=== PATIENT | male | born 1990 | race Caucasian/White ===

== ENCOUNTER 2018-01-13 14:36 | Emergency (ER) | payer MEDICAID, SELFPAY ==
[2018-01-13 14:37] VITALS: BP 139/86; PULSE 62; RESP 16; TEMP 36.2; BMI 38.1
--- NOTE | 2018-01-13 14:47 | ED.DCSUM_ITS ---
- ER Visit Summary Date of Service: 01/13/18 Chief Complaint: Tooth pain History of Present Illness: The patient is a 27 M who presents with tooth pain. Started yesterday. He has had pain in his tooth off and on but got worse yesterday. He tried ldgn-gmo-umfqdsy medications are not helping. He does not have a dentist currently but is scheduled to see a new one next week. Physical Examination: Vital signs reviewed. HEENT exam reveals tenderness at tooth #16. He has widespread dental decay. No gingival abscess. No Chirag's angina. Test Results: [] Emergency Department Course and Treatment: Patient will be given penicillin and naproxen for home. He will follow-up with his dentist Treatment Plan: [] Disposition: Discharge Impression: Odontalgia This note was generated with [employer] dictation software. It may contain incorrect words, spelling, and punctuation that were not noted in review of the chart prior to signing ED Disposition - Plan for ED Patient: Chief Complaint: Dental Referrals: Care Physician,No Primary [Primary Care Provider] -
--- NOTE | 2018-01-13 14:47 | ED.DEP ---
ED Disposition - Plan for ED Patient: Disposition: Home or Assisted Living Chief Complaint: Dental Instructions: ED Tooth Pain Prescriptions: Naproxen [Naprosyn] 500 mg PO BID PRN #20 tab Penicillin V Potassium 500 mg PO 4X/DAY #40 tab Referrals: Care Physician,No Primary [Primary Care Provider] -
[2018-01-13 14:52] VITALS: BP 139/86; PULSE 62; RESP 18
== END 2018-01-13 14:53 | disposition home or self-care (01) ==
PROVIDERS: Emergency Provider Emergency Medicine
DX: K02.9 Dental caries, unspecified (principal); J45.909 Unspecified asthma, uncomplicated
CPT/HCPCS: 99282

== ENCOUNTER → 2018-09-08 14:56 | Outpatient (CLI) | payer MEDICAID, SELFPAY ==
--- NOTE | 2018-09-08 15:01 | VDLE_ITS ---
Reason For Study: pain RIGHT LEFT CFV is compressible, spontaneous, phasic, GSV is normal. competent and demonstrates normal CFV is compressible, spontaneous, phasic, augmentation. competent, and demonstrates normal Procedure augmentation. Exam performed in department. FV is compressible, spontaneous, phasic, The exam was diagnostic. competent and demonstrates normal A preliminary report was called and/or faxed augmentation. to Breezy Reyes. POP V is compressible, spontaneous, phasic, competent and demonstrates normal augmentation. T/P Trunk is compressible. PTV is compressible. LT PerV is compressible. Interpretation Summary Deep veins of the left lower extremity are patent and compressible segmentally. There is no evidence of left lower extremity deep vein thrombosis. Valvular competence appears intact within the proximal deep venous system on the left . The left greater saphenous vein appears patent and compressible segmentally. Ordering Physician: Breezy Reyes Performed By: Trey Reyna RVT
== END ==
PROVIDERS: Referring Provider Orthopaedic Surgery; Visit Provider Orthopaedic Surgery
DX: M79.605 Pain in left leg (principal)
CPT/HCPCS: 93971

== ENCOUNTER 2018-09-17 05:55 | Day surgery (SDC) | payer MEDICAID, SELFPAY ==
[2018-09-17] VITALS (10 sets, daily range): BP systolic 97–125; BP diastolic 58–75; PULSE 65–88; RESP 16; TEMP 36.1–36.3; O2SAT 93–100; BMI 37.3
[2018-09-17] MEDS: Cefazolin 2 GM in 0.9% Normal Saline 100 ML IV (07:30)
--- NOTE | 2018-09-17 09:26 | PCM.OP.PRO ---
Procedure Report Date of Procedure: 09/17/18 Preoperative diagnosis: Left knee ACL tear Postoperative diagnosis: Left knee ACL tear Procedure: Left knee ACL reconstruction using autologous hamstring tendon Surgeon: Dr. Breezy Reyes [employer] Intern: Valarie Beaver PA-C Anesthesia: General, LMA, postoperative nerve block for pain control Medications: Ancef Indications for surgery: Patient is a 27-year-old male with a left knee injury while trampolining. he has had pain and instability. Failed conservative measures. MRI consistent with intra-articular pathology, ACL tear. he did wish to have surgical intervention. Findings: Patient had a complete ACL tear. No meniscus tear identified. Underwent ACL reconstruction using quadrupled semitendinosus autograft using femoral tight rope and tibial tight rope, Arthrex Physician special event assistant was utilized throughout the entire procedure. She help with patient positioning. She help with graft harvesting. She helped with graft preparation. This was done simultaneous to the surgeon proceeding with further graft harvesting and intra-articular knee surgery. Physician special event assistant was crucial in helping with placement of tunnels. Graft fixation. Also helping with graft tensioning. Also wound closure bandage application. Without surgical physician special event assistant surgical time would have been increased and surgical outcome could have been less optimal. Surgical procedure: Patient was taken to the operating room and transferred to the OR table. Anesthesia was given. Ancef was given IV preoperatively. Well-padded tourniquet applied to the left upper thigh that was not inflated. Right lower extremity had MARCELINO hose and SCD on throughout. Right lower extremity was padded over the end of the bed which was flexed down. Left thigh placed in the padded arthroscopic leg seals. Left knee exam and found to be unstable to Evelyne testing. Left knee unstable to pivot shift testing. Left knee was prepped padded draped in the usual orthopedic sterile fashion for the procedure. Oblique incision was made over the upper medial tibia. Careful dissection through skin, sub-cutaneous tissue and onto the hamstring attachment site. I used the Bovie to dissect from the anterior crest of the tibia underneath the hamstring attachment harvesting semi-tendinosis tendon. Tendon was whipstitched at the end.. Tendon harvester used to obtain the full length of each of the tendons. Physician special event assistant took the tendons to the back table, prepared the graft under standard technique. Quadrupled hamstrings measured 9 mm. 70 mm in length ,plenty of length. This was appropriately tensioned. Antibiotic soaked sponge was placed over it under tension. Physician at the same time proceeded with arthroscopic knee surgery. Lateral joint line portal taken through skin with a knife. Dull trocar took mean of the joint. Suprapatellar pouch was normal. Medial and lateral gutters normal. Intercondylar notch showed a complete ACL tear. Pictures taken. Medial compartment showed no meniscus tear. Lateral compartment showed no meniscus tear. Mild chondrosis diffusely Notch plasty performed with a shaver, bur. Medial cannula was established. At this point tibial guide set at 105? utilized the femoral side. Flip cutter appropriately utilized for a 9 mm graft. Bony fragments removed. Approximately 3 mm posterior wall identified. Tagging suture placed through the cannula and portal.. We then used the guide through the tibial tunnel with a 40 mm tunnel length. We used the flip cutter there are 9 mm as well. Bony fragments removed. Tagging suture placed through that portal. Graft was now brought in after knee had been thoroughly cleaned. We used the femoral tight rope brought up through the bone. We then tensioned it. Approximately 15-20 mm of the tendon was within the tibial tunnel. We then used the other passing suture to bring the graft through the tibial tunnel. We placed a tibial tight rope and using the 4 strands of suture through the graft tightness down nicely. Knee was fully extended and fully flexed as allowed by the table. Good stability to Evelyne testing and drawer testing. Scope was placed back in the knee. Graft was noted to be in good position. Graft had nice resting tension. Tunnel tensioning of the tibial and femoral sutures done. 2 of the tibial sutures tied over the button. The suture is cut off even with the button. Final set of pictures taken. Knee drained of excess fluid. Arthroscopy portals closed with a simple suture. [place]aelder site closed with deep 0 Vicryl, inverted 2-0 Vicryl, Steri-Strips. Steri-Strips placed over the puncture sites. Sterile bandage appied. Patient taken to recovery room in satisfactory condition. Patient to get a postoperative nerve block there. Patient will be weightbearing as tolerated. Knee brace if needed This note was generated with [employer] software. It may contain incorrect words, spelling, and punctuation that were not noted in checking the note before signing.
--- NOTE | 2018-09-17 09:30 | PRO.PCM_ITS ---
Procedure Report Date of Procedure: 09/17/18 Preoperative diagnosis: Left knee ACL tear Postoperative diagnosis: Left knee ACL tear Procedure: Left knee ACL reconstruction using autologous hamstring tendon Surgeon: Dr. Breezy Reyes Bar Welder: Valarie Beaver PA-C Anesthesia: General, LMA, postoperative nerve block for pain control Medications: Ancef Indications for surgery: Patient is a 27-year-old male with a left knee injury while trampolining. he has had pain and instability. Failed conservative measures. MRI consistent with intra-articular pathology, ACL tear. he did wish to have surgical intervention. Findings: Patient had a complete ACL tear. No meniscus tear identified. Underwent ACL reconstruction using quadrupled semitendinosus autograft using femoral tight rope and tibial tight rope, Arthrex Physician assistant analyst was utilized throughout the entire procedure. She help with patient positioning. She help with graft harvesting. She helped with graft preparation. This was done simultaneous to the surgeon proceeding with further graft harvesting and intra-articular knee surgery. Physician assistant analyst was cr ucial in helping with placement of tunnels. Graft fixation. Also helping with graft tensioning. Also wound closure bandage application. Without surgical physician assistant analyst surgical time would have been increased and surgical outcome could have been less optimal. Surgical procedure: Patient was taken to the operating room and transferred to the OR table. Anesthesia was given. Ancef was given IV preoperatively. Well- padded tourniquet applied to the left upper thigh that was not inflated. Right lower extremity had MARCELINO hose and SCD on throughout. Right lower extremity was padded over the end of the bed which was flexed down. Left thigh placed in the padded arthroscopic leg seals. Left knee exam and found to be unstable to Evelyne testing. Left knee unstable to pivot shift testing. Left knee was prepped padded draped in the usual orthopedic sterile fashion for the procedure. Oblique incision was made over the upper medial tibia. Careful dissection through skin, sub-cutaneous tissue and onto the hamstring attachment site. I used the Bovie to dissect from the anterior crest of the tibia underneath the hamstring attachment harvesting semi-tendinosis tendon. Tendon was whipstitched at the end.. Tendon harvester used to obtain the full length of each of the tendons. Physician assistant analyst took the tendons to the back table, prepared the graft under standard technique. Quadrupled hamstrings measured 9 mm. 70 mm in length ,plenty of length. This was appropriately tensioned. Antibiotic soaked sponge was placed over it under tension. Physician at the same time proceeded with arthroscopic knee surgery. Lateral joint line portal taken through skin with a knife. Dull trocar took mean of the joint. Suprapatellar pouch was normal. Medial and lateral gutters normal. Intercondylar notch showed a complete ACL tear. Pictures taken. Medial compartment showed no meniscus tear. Lateral compartment showed no meniscus tear. Mild chondrosis diffusely Notch plasty performed with a shaver, bur. Medial cannula was established. At this point tibial guide set at 105? utilized the femoral side. Flip cutter appropriately utilized for a 9 mm graft. Bony fragments removed. Approximately 3 mm posterior wall identified. Tagging suture placed through the cannula and portal.. We then used the guide through the tibial tunnel with a 40 mm tunnel length. We used the flip cutter there are 9 mm as well. Bony fragments removed. Tagging suture placed through that portal. Graft was now brought in after knee had been thoroughly cleaned. We used the femoral tight rope brought up through the bone. We then tensioned it. Approximately 15-20 mm of the tendon was within the tibial tunnel. We then used the other passing suture to bring the graft through the tibial tunnel. We placed a tibial tight rope and using the 4 strands of suture through the graft tightness down nicely. Knee was fully extended and fully flexed as allowed by the table. Good stability to Evelyne testing and drawer testing. Scope was placed back in the knee. Graft was noted to be in good position. Graft had nice resting tension. Tunnel tensioning of the tibial and femoral sutures done. 2 of the tibial sutures tied over the button. The suture is cut off even with the button. Final set of pictures taken. Knee drained of excess fluid. Arthroscopy portals closed with a simple suture. Eola site closed with deep 0 Vicryl, inverted 2-0 Vicryl, Steri-Strips. Steri-Strips placed over the puncture sites. Sterile bandage appied. Patient taken to recovery room in satisfactory condition. Patient to get a postoperative nerve block there. Patient will be weightbearing as tolerated. Knee brace if needed This note was generated with [employer] software. It may contain incorrect words, spelling, and punctuation that were not noted in checking the note before signing.
[2018-09-17] MEDS: HYDROcodone Bitartrate/Apap 5/325 Tablet PO (11:52)
== END 2018-09-17 12:39 | disposition home or self-care (01) ==
LOC: SDC 05:55 → AC 05:57
PROVIDERS: Referring Provider Orthopaedic Surgery; Visit Provider Orthopaedic Surgery
PROC: (CPT 29888; principal; 2018-09-17 07:10)
DX: S83.512A Sprain of anterior cruciate ligament of left knee, initial encounter (principal); X58.XXXA Exposure to other specified factors, initial encounter; Y93.44 Activity, trampolining; Y92.9 Unspecified place or not applicable; J45.909 Unspecified asthma, uncomplicated
CPT/HCPCS: 01400; 29888; 64450; J7120; J2405

== ENCOUNTER 2022-05-02 21:46 | Emergency (ER) | payer MEDICAID, SELFPAY ==
[2022-05-02 21:47] VITALS: BP 121/92; PULSE 117; RESP 20; TEMP 36.8; O2SAT 99; BMI 37.2
--- NOTE | 2022-05-02 21:56 | EX.ED.DYSGE1 ---
HPI History of Present Illness Chief Complaint: General Illness Narrative Narrative: 31-year-old male presenting with body aches, chills, shortness of breath. He has a subjective fever but has not checked his temperature. He has been doing his nebulizers and states this does not seem to be helping. He states that he cannot feel his body because of the chills. He does have a cough is nonproductive. No nausea or vomiting. He does not feel like he is wheezing. Patient states that he was driving the mother of his future child around to her appointments and she developed fever, chills, body aches starting on Thursday. He states his children have been with his parents since Thursday. His children are not ill. Patient states he has not taken Tylenol or ibuprofen. He states he was considering it tonight before coming but decided he would come be seen. Patient also states he was going to use Vicks VapoRub to help his symptoms but he did not. [facility] Medical History Asthma Home Medications albuterol sulfate 2.5 mg/3 mL (0.083 %) solution for nebulization 2.5 mg inhalation Q4H PRN PRN Sob &/Or Wheezing 01/06/16 [History Last Taken 03/29/17] cyclobenzaprine 10 mg tablet 10 mg PO TID PRN Muscle Spasm ##20 02/28/16 [Rx Last Taken Unknown] albuterol sulfate 90 mcg/actuation aerosol inhaler (Ventolin HFA) 1 - 2 puff inhalation Q4H PRN PRN Wheezing ##1 03/29/17 [Rx Last Taken 09/17/18 05:45 1 - 2 PUFF] naproxen 500 mg tablet 500 mg PO BID PRN #20 tabs 01/13/18 [Rx Last Taken Unknown] prednisone 10 mg tablet 40 mg PO PRN PRN Pain 09/13/18 [History Last Taken Unknown] Allergy/AdvReac Type Severity Reaction Status Date / Time No Known Allergies Allergy Verified 09/13/18 14:45 Social History Smoking Status: Never smoker ROS ROS ED Constitutional Constitutional ED: Reports chills, fever(s) and subjective Eyes Eyes: Denies change in vision ENT ENT ED: Denies rhinorrhea or sore throat Cardiovascular Cardiovascular: Denies chest pain or palpitations Respiratory/Chest Respiratory/Chest: Reports cough and dyspnea Gastrointestinal Gastrointestinal: Denies abdominal pain or constipation Genitourinary Genitourinary ED: Denies dysuria or hematuria Musculoskeletal Musculoskeletal: Reports myalgias Integumentary Denies abscess or Abrasions Neurologic Neurologic: Reports headache(s); Denies paresthesias Psychiatric Psychiatric: Denies anxiety or depression EXAM Physical Exam Const Vital Signs: 05/02/22 21:47 05/02/22 21:50 Temperature 98.2 F Temperature Source Temporal Pulse Rate 117 H Respiratory Rate 20 H Respiratory Effort Normal Blood Pressure 121/92 H Blood Pressure Mean 101 Pulse Ox 99 Oxygen Delivery Method Room Air Positive well nourished General Appearance ED: NAD HEENT Reports moist mucous membranes Eyes PERRL and EOMs intact bilaterally Neck no lymphadenopathy, supple and no JVD Chest Wall inspection of chest normal and palpation of chest normal Resp normal respiratory effort and clear to auscultation bilaterally Auscultation: Negative for rales, rhonchi or wheezes Cardio regular rhythm Rate: tachycardic GI normal to inspection, nondistended, normoactive bowel sounds Neuro oriented x3 and CN's II-XII intact bilaterally Sensorium / Orientation: alert Motor Exam: strength 5/5 throughout Psych mental status grossly normal Skin no rashes or lesions noted and no wounds MDM MDM MDM Narrative Medical decision making narrative: Patient presenting with viral symptoms. His initial temperature was registered as 98.2 temporally but when I checked this orally it is 101.6. I believe this is why he is a little tachycardic. He does not have chest pain. Although he states he is short of breath he has nonlabored breathing and speaking in full sentences. His lungs are clear to auscultation bilaterally. Patient was given a gram of Tylenol. I will test him for COVID, influenza, RSV. I do not believe he needs breathing treatments currently. Testing came back negative for COVID, influenza, RSV. Patient feeling improved with Tylenol. I do not believe any checks x-ray. Given that the mother of his child is having symptoms as well this is most likely viral. Patient counseled to alternate Tylenol and ibuprofen. He is encouraged to drink plenty of fluids. Return precautions discussed. Impression: 1. Viral syndrome Lab Data Attestation: I reviewed the patient's lab results. Discharge Plan Triage Chief Complaint: General Illness ED Provider: Scot Richmond Dx/Rx/DC Orders Instructions: ED Viral Syndrome (Adult) Prescriptions: No Action albuterol sulfate 2.5 MG/3 ML Vial.Neb. 2.5 mg inhalation Q4H PRN PRN (Reason: Sob &/Or Wheezing) cyclobenzaprine 10 MG tablet 10 mg PO TID PRN (Reason: Muscle Spasm) Qty: 20 0RF albuterol sulfate [Ventolin HFA] 1 INHALER inhaler 1 - 2 puff inhalation Q4H PRN PRN (Reason: Wheezing) Qty: 1 0RF naproxen 500 MG tablet 500 mg PO BID PRN Qty: 20 0RF prednisone 10 MG tablet 40 mg PO PRN PRN (Reason: Pain) Stand Alone Forms: ED Work / School Excuse Primary Care Provider: Care Physician,No Primary Referrals: Stella Houston MD [Med Staff - Compliance Officer] - 3-5 Days Care Physician,No Primary [Primary Care Provider] - Disposition Disposition: Home, Self Care
[2022-05-02] MEDS: Acetaminophen 500 MG Tablet 1000 MG PO (21:58)
== END 2022-05-02 22:49 | disposition home or self-care (01) ==
PROVIDERS: Emergency Provider Student in an Organized Health Care Education/Training Program; Visit Provider Student in an Organized Health Care Education/Training Program
DX: B34.9 Viral infection, unspecified (principal); J45.909 Unspecified asthma, uncomplicated; R50.9 Fever, unspecified; R00.0 Tachycardia, unspecified; R05.9 Cough, unspecified; Z20.822 Contact with and (suspected) exposure to COVID-19; Z79.899 Other long term (current) drug therapy
CPT/HCPCS: 87428; 87807; 99283

== ENCOUNTER 2023-01-15 18:55 | Emergency (ER) | payer MEDICAID, SELFPAY ==
[2023-01-15 18:55] VITALS: BP 133/90; PULSE 66; RESP 22; TEMP 36.3; O2SAT 98; BMI 36.7
--- NOTE | 2023-01-15 19:10 | ED.VIS.BACK ---
HPI History of Present Illness Chief Complaint: Back Detail of Chief Complaint: Acute on chronic low back pain Informant: patient Onset/Context/Timing Onset: Yesterday Context: Sudden Onset Injury: fall Timing: Continuous and Waxes and wanes Quality: Dull and Aching Location: Lumbar Current Severity: Mild Maximum Severity: Severe Worsened by: improves with Movement, Bending and Lifting Relieved by: Nothing Associated Symptoms Associated Symptoms: Radiation to Left Leg (Anterior right leg above the patella for 20 minutes after fall) and - (No saddle paresthesia or anesthesia. No foot drop with walking. No buckling of knees going up or down steps.); Negative for Numbness, Tingling, Radiation to Right Leg, Fever, Abdominal Pain, Dysuria, Unable to Ambulate, Urinary Retention, Urinary Incontinence, Constipation or Fecal Incontinence Narrative Narrative: Patient is a 32-year-old male with chronic back pain. He is present no medicine. He is taken nothing for the pain. He states he was at work yesterday. 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 He developed severe pain went down to the ground. He denies bowel bladder dysfunction. No saddle paresthesia anesthesia. Denies radicular pain. He denies foot drop. He denies buckling of his knees going up or down steps. He denies fever, chills night sweats. Denies recent dental or surgical procedures. He has no history of IV drug use. Prior similar symptoms: Yes Recent Illness/Hospitalization: No [facility] Medical History Asthma Home Medications albuterol sulfate 2.5 mg/3 mL (0.083 %) solution for nebulization 2.5 mg inhalation Q4H PRN PRN Sob &/Or Wheezing 01/06/16 [History Last Taken 03/29/17] cyclobenzaprine 10 mg tablet 10 mg PO TID PRN Muscle Spasm ##20 02/28/16 [Rx Last Taken Unknown] albuterol sulfate 90 mcg/actuation aerosol inhaler (Ventolin HFA) 1 - 2 puff inhalation Q4H PRN PRN Wheezing ##1 03/29/17 [Rx Last Taken 09/17/18 05:45 1 - 2 PUFF] naproxen 500 mg tablet 500 mg PO BID PRN #20 tabs 01/13/18 [Rx Last Taken Unknown] prednisone 10 mg tablet 40 mg PO PRN PRN Pain 09/13/18 [History Last Taken Unknown] hydrocodone-acetaminophen 5-325mg 5mg-325mg 1 tab PO Q6H PRN PRN Pain 3 days #10 TABLETS 01/15/23 [Rx Last Taken Unknown] naproxen 500 mg tablet 500 mg PO BID #14 tabs 01/15/23 [Rx Last Taken Unknown] Allergy/AdvReac Type Severity Reaction Status Date / Time No Known Allergies Allergy Verified 01/15/23 18:57 Social History (Updated 01/15/23 @ 19:[address] Raj Hunt MD) household members: significant other Smoking Status: Never smoker substance use type: does not use ROS ROS ED Constitutional Constitutional ED: Denies chills, fever(s), subjective or sweats Cardiovascular Cardiovascular: Denies chest pain, palpitations or racing heartbeat Respiratory/Chest Respiratory/Chest: Denies dyspnea Gastrointestinal Gastrointestinal: Denies abdominal pain, constipation, diarrhea, nausea or vomiting Genitourinary Genitourinary ED: Denies dysuria, hematuria or urinary frequency Musculoskeletal Musculoskeletal: Reports back pain; Denies arthralgias, myalgias or neck pain Integumentary Denies rash Neurologic Neurologic: Denies paresthesias or weakness Hematologic/Lymphatic Hematologic/Lymphatic: Denies easy bleeding or easy bruising EXAM Physical Exam Const Vital Signs: 01/15/23 18:55 Temperature 97.4 F L Temperature Source Temporal Pulse Rate 66 Respiratory Rate 22 H Blood Pressure 133/90 H Blood Pressure Mean 104 Pulse Ox 98 Oxygen Delivery Method Room Air Positive well nourished, well developed and obese General Appearance ED: well developed and NAD; Negative for pallor Nutritional Appearance: obese HEENT Reports moist mucous membranes HEENT Narrative: Head is atraumatic normocephalic. Ears normal. Nares patent. Eyes PERRL and EOMs intact bilaterally General Eye ED: Yes other Other Details: Patient does wear glasses. ; Negative for pale conjunctiva or scleral icterus Neck no lymphadenopathy, supple and no JVD Resp normal respiratory effort and clear to auscultation bilaterally Cardio regular rate, regular rhythm, S1 normal heart sound, S2 normal heart sound and no murmurs GI normal to inspection, nondistended, normoactive bowel sounds, soft to palpation, non-tender and non-distended Back/Spine normal to inspection; Negative for no thoracic nor lumbar tenderness Back/Spine Narrative: Pain outpatient paralumbar region. Having him stand on his right or left foot does not cause pain. Having him twist to the right or left causes pain and greater to the right. Extension causes more pain than flexion. Straight leg test is negative. Crossover test is negative. Gait observed with no foot drop. Able to walk on heels and toes. Able to perform 1 legged squat right and left. Patella and ankle reflexes are 1+ and symmetric. EHL is intact. Sensation over L3, L4, L5 and S1 is intact and symmetric. DP and PT pulse are palpable. There are no skin lesions noted. Extremity normal to inspection and no clubbing, cyanosis or edema Neuro oriented x3 and no sensory deficits noted Sensorium / Orientation: alert Deep Tendon Reflexes: Rt Patellar (L4): 1+, Lt Patellar (L4): 1+, Rt Ankle (S1): 1+ and Lt Ankle (S1): 1+ Deep Tendon Reflexes Back: Rt Patellar (L4): 1+, Lt Patellar (L4): 1+, Rt Ankle (S1): 1+ and Lt Ankle (S1): 1+ Plantar Reflex: Downgoing: bilateral Psych mental status grossly normal Skin no rashes or lesions noted and no wounds General Skin Exam: Negative for jaundice or pallor MDM MDM MDM Narrative Medical decision making narrative: Patient's history and physical is consistent with muscular low back pain. Patient was treated with oral analgesics. Since there is no history of trauma imaging is not indicated. Since there is no neurologic deficit advanced imaging is not indicated i.e. MRI. Patient was instructed to follow-up with his provider listed on his insurance card issued by [employer]. Discharge Plan Triage Chief Complaint: Back ED Provider: Raj Hunt Dx/Rx/DC Orders Clinical Impression: Acute exacerbation of chronic low back pain Instructions: ED Back Pain (Acute or Chronic) Prescriptions: New hydrocodone-acetaminophen [hydrocodone-acetaminophen] 5-325 mg tablet 1 tab PO Q6H PRN PRN (Reason: Pain) 3 Days Qty: 10 0RF naproxen 500 mg tablet 500 mg PO BID Qty: 14 0RF No Action albuterol sulfate 2.5 MG/3 ML solution for nebulization 2.5 mg inhalation Q4H PRN PRN (Reason: Sob &/Or Wheezing) cyclobenzaprine 10 MG tablet 10 mg PO TID PRN (Reason: Muscle Spasm) Qty: 20 0RF albuterol sulfate [Ventolin HFA] 1 INHALER inhaler 1 - 2 puff inhalation Q4H PRN PRN (Reason: Wheezing) Qty: 1 0RF naproxen 500 MG tablet 500 mg PO BID PRN Qty: 20 0RF prednisone 10 MG tablet 40 mg PO PRN PRN (Reason: Pain) Primary Care Provider: Care Physician,No Primary Referrals: Care Physician,No Primary [Primary Care Provider] - Disposition Disposition: Home, Self Care
[2023-01-15] MEDS: Naproxen 250 MG Tablet 500 MG PO (19:26)
[2023-01-15] MEDS: HYDROcodone Bitartrate/Apap 5/325 Tablet PO (19:26)
== END 2023-01-15 19:29 | disposition home or self-care (01) ==
PROVIDERS: Emergency Provider Emergency Medicine; Visit Provider Emergency Medicine
DX: M54.50 Low back pain, unspecified (principal); G89.29 Other chronic pain; E66.9 Obesity, unspecified; Z68.36 Body mass index [BMI] 36.0-36.9, adult
CPT/HCPCS: 99283

== ENCOUNTER 2023-04-29 08:39 | Emergency (ER) | payer OTHER, SELFPAY ==
[2023-04-29 08:39] VITALS: BP 139/66; PULSE 77; RESP 14; TEMP 36.4; O2SAT 98
--- NOTE | 2023-04-29 09:11 | ED.VIS.BACK ---
HPI History of Present Illness Chief Complaint: Back Informant: patient Narrative Narrative: Recurrent lower back pain after getting out of car this morning. History of chronic back pain with degenerative disc issues. He states he has had this for years. He is follow-up with spine surgeon years ago through [facility] states either weight loss or will require surgery. He is scared of surgery. Intermittent flares. States this mornings putting air in the tires, he felt mild symptoms, when he dropped off his kids at his mother's house getting out of the car pain worsened. No radicular pain. No loss of bowel or bladder control. Denies any IV drug use. Denies fevers. Pain worse with weightbearing and walking. Has not taken any medication today. Denies any allergies. States 5 or 6 years ago had injections he thinks one of them are steroids that did help within hours. He was last seen here 3 months ago for flare, was on NSAIDs and short course of hydrocodone. He states it took a couple days to get better. He states him and studies has been performed in the past as an outpatient. Prior similar symptoms: Yes PFSH [facility] Medical History Asthma Home Medications albuterol sulfate 2.5 mg/3 mL (0.083 %) solution for nebulization 2.5 mg inhalation Q4H PRN PRN Sob &/Or Wheezing 01/06/16 [History Last Taken 03/29/17] cyclobenzaprine 10 mg tablet 10 mg PO TID PRN Muscle Spasm ##20 02/28/16 [Rx Last Taken Unknown] albuterol sulfate 90 mcg/actuation aerosol inhaler (Ventolin HFA) 1 - 2 puff inhalation Q4H PRN PRN Wheezing ##1 03/29/17 [Rx Last Taken 09/17/18 05:45 1 - 2 PUFF] naproxen 500 mg tablet 500 mg PO BID PRN #20 tabs 01/13/18 [Rx Last Taken Unknown] prednisone 10 mg tablet 40 mg PO PRN PRN Pain 09/13/18 [History Last Taken Unknown] hydrocodone-acetaminophen 5-325mg 5mg-325mg 1 tab PO Q6H PRN PRN Pain 3 days #10 TABLETS 01/15/23 [Rx Last Taken Unknown] naproxen 500 mg tablet 500 mg PO BID #14 tabs 01/15/23 [Rx Last Taken Unknown] hydrocodone-acetaminophen 5-325mg 5mg-325mg 1 tab PO Q6H PRN PRN Pain 3 days #10 TABLETS 04/29/23 [Rx Last Taken Unknown] naproxen 500 mg tablet 500 mg PO BID PRN pain #20 tabs 04/29/23 [Rx Last Taken Unknown] Allergy/AdvReac Type Severity Reaction Status Date / Time No Known Allergies Allergy Verified 04/29/23 08:41 Social History (Updated 01/15/23 @ 19:[address] Raj Hunt MD) household members: significant other Smoking Status: Never smoker substance use type: does not use ROS ROS ED Constitutional Constitutional ED: Denies chills, fever(s) or sweats Eyes Eyes: Denies change in vision ENT ENT ED: Denies dysphagia or sore throat Cardiovascular Cardiovascular: Denies chest pain, leg edema, palpitations or racing heartbeat Respiratory/Chest Respiratory/Chest: Denies cough, dyspnea or dyspnea on exertion Gastrointestinal Gastrointestinal: Denies abdominal pain, diarrhea, nausea or vomiting Genitourinary Genitourinary ED: Denies dysuria, hematuria or urinary frequency Musculoskeletal Musculoskeletal: Reports back pain; Denies extremity pain or neck pain Integumentary Denies rash or wounds Neurologic Neurologic: Denies headache(s), paresthesias or weakness EXAM Physical Exam Const Vital Signs: 04/29/23 08:39 Temperature 97.5 F L Temperature Source Temporal Pulse Rate 77 Respiratory Rate 14 Blood Pressure 139/66 H Blood Pressure Mean 90 Pulse Ox 98 Oxygen Delivery Method Room Air Positive well nourished and well developed Constitutional Narrative: Patient able to walk with a cane bedside. General Appearance ED: well developed HEENT Reports moist mucous membranes normocephalic and atraumatic Eyes PERRL, EOMs intact bilaterally and conjunctivae normal General Eye ED: Yes normal appearance of both eyes Neck no lymphadenopathy and supple General: Negative for tenderness Chest Wall Chest: Negative for tenderness Resp normal respiratory effort and normal air movement Effort and Inspection: symmetric chest movement; Negative for respiratory distress Cardio regular rate, regular rhythm and no murmurs Peripheral Pulses: pulses 2+ throughout GI normal to inspection, nondistended, normoactive bowel sounds and non-tender Palpation: Negative for guarding or rebound tenderness present Back/Spine no CVA tenderness Back/Spine Narrative: Paralumbar tenderness left greater than right, straight leg test was negative. 1+ patellar reflex bilaterally. Pulses are intact distally. Extremity normal to inspection General Extremety ED: Negative for edema or tenderness General Extremity: Negative for edema Neuro oriented x3 and no sensory deficits noted Sensorium / Orientation: awake and alert Skin no rashes or lesions noted and no wounds MDM MDM MDM Narrative Medical decision making narrative: Interventions / MDM: Differential diagnosis: Lumbar strain, degenerative disc disease Diagnosis considered but do not suspect: No cauda equina symptoms, denies IV drug use history or fevers for concerns for discitis. My EKG interpretation: N/A Imaging independently reviewed and interpreted by myself: N/A External documents reviewed: N/A Test considered but not ordered:N/A ED course: Patient nontoxic, no cauda equina symptoms. Denies any radicular symptoms. Reported improving symptoms with steroid injections few years ago. Denies history of kidney injury or gastric ulcers. IM Toradol and Kenalog ordered. [facility] report notes that the last prescription was 3 months ago hydrocodone. Prescription for NSAIDs and short course of hydrocodone, he is referred to local spine doctors for second opinion per his request. Work note given. Outpatient follow-up. All questions were answered. Re-evaluation: stable Disposition discussed with patient/family/significant other: Patient Case discussed with consulting clinician: N/A This note was generated with [employer] dictation software. It may contain incorrect words, spelling, and punctuation that were not noted in checking the note before signing. Discharge Plan Triage Chief Complaint: Back ED Provider: Cleveland Baxter Dx/Rx/DC Orders Clinical Impression: Acute exacerbation of chronic low back pain, Degenerative disk disease Instructions: ED Back Pain (Acute or Chronic) Prescriptions: New hydrocodone-acetaminophen [hydrocodone-acetaminophen] 5-325 mg tablet 1 tab PO Q6H PRN PRN (Reason: Pain) 3 Days Qty: 10 0RF naproxen 500 mg tablet 500 mg PO BID PRN (Reason: pain) Qty: 20 0RF No Action albuterol sulfate 2.5 MG/3 ML solution for nebulization 2.5 mg inhalation Q4H PRN PRN (Reason: Sob &/Or Wheezing) cyclobenzaprine 10 MG tablet 10 mg PO TID PRN (Reason: Muscle Spasm) Qty: 20 0RF albuterol sulfate [Ventolin HFA] 1 INHALER inhaler 1 - 2 puff inhalation Q4H PRN PRN (Reason: Wheezing) Qty: 1 0RF naproxen 500 MG tablet 500 mg PO BID PRN Qty: 20 0RF prednisone 10 MG tablet 40 mg PO PRN PRN (Reason: Pain) hydrocodone-acetaminophen [hydrocodone-acetaminophen] 5-325 mg tablet 1 tab PO Q6H PRN PRN (Reason: Pain) 3 Days Qty: 10 0RF naproxen 500 mg tablet 500 mg PO BID Qty: 14 0RF Stand Alone Forms: ED Work / School Excuse Primary Care Provider: Care Physician,No Primary Referrals: Tha Roa DO [Med Staff - Active Staff] - 1 Week Care Physician,No Primary [Primary Care Provider] - Activity Restrictions/Additional Instructions: Status post Toradol and Kenalog injections. Take medications as prescribed. Follow-up with Dr. Roa. As an outpatient for reevaluation. Disposition Disposition: Home, Self Care Discharge Date/Time: 04/29/23 09:43
[2023-04-29] MEDS: Ketorolac 30 MG/ML Syringe IM (09:12)
[2023-04-29] MEDS: Triamcinolone Acetonide 40 MG/ML Vial 80 MG IM (09:13)
== END 2023-04-29 09:43 | disposition home or self-care (01) ==
PROVIDERS: Emergency Provider Emergency Medicine; Visit Provider Emergency Medicine
DX: M54.50 Low back pain, unspecified (principal); G89.29 Other chronic pain
CPT/HCPCS: 96372; 99282

== ENCOUNTER 2023-06-22 11:38 | Emergency (ER) | payer OTHER, SELFPAY ==
[2023-06-22 11:39] VITALS: BP 108/77; PULSE 60; RESP 18; TEMP 36.9; O2SAT 96; BMI 37.1
--- NOTE | 2023-06-22 11:54 | EDS_ITS ---
<Statement entered by Lou Morris MD - 06/22/23 16:30> I have personally performed a face to face assessment of the patient and have reviewed the MATTEO Note. Patient presents secondary to URI symptoms with abdominal pain and back pain. He said pain for the last several days. Decreased p.o. intake due to poor appetite. No recent fall or injury. He has chronic back pain that is recently worsened with this illness. Patient sitting upright in bed no acute distress. Nontoxic-appearing. Head and neck examination unremarkable. Heart regular rate and rhythm. Lung sounds are clear. Abdomen is soft and nontender. Neuro exam reveals no focal deficits. Lab work is unremarkable. Swab for COVID, influenza, RSV is negative. Patient is given Toradol and Norflex for pain. I do feel we can continue symptomatic treatment at home and further imaging studies are not needed. I do feel his symptoms are viral in nature and he does not need antibiotics at this time. HPI History of Present Illness Chief Complaint: General Illness Narrative Narrative: 32-year-old male states he had 1 week of increased back pain. He has chronic low back issues but he feels achy all over and in his pelvis. Over the last couple days has had bilateral lower abdominal pain and 1-2 episodes of loose stools per day with last yesterday. No black or bloody stools. He has nausea and vomited last night after trying to eat soup and today has no appetite. He complains of headache and feeling like his eyes and throat are swollen. He has had a slight cough and his asthma is flaring up. He does not have an inhaler. He states his daughter was sick and seen in urgent care this morning and tested for COVID/flu but it is pending. He was sent here for evaluation of his abdominal pain. [facility] Medical History (Updated 06/22/23 @ 13:36 by JEFFERSON Chamberlain) Asthma DDD (degenerative disc disease) Home Medications albuterol sulfate 2.5 mg/3 mL (0.083 %) solution for nebulization 2.5 mg inhalation Q4H PRN PRN Sob &/Or Wheezing 01/06/16 [History Last Taken 03/29/17] albuterol sulfate 90 mcg/actuation aerosol inhaler (Ventolin HFA) 1 - 2 puff inhalation Q4H PRN PRN Wheezing ##1 03/29/17 [Rx Last Taken 09/17/18 05:45 1 - 2 PUFF] ondansetron 4 mg disintegrating tablet 4 mg PO Q8H PRN PRN Nausea #10 tabs 06/22/23 [Rx Last Taken Unknown] Allergy/AdvReac Type Severity Reaction Status Date / Time No Known Allergies Allergy Verified 06/22/23 11:39 Surgical History (Updated 06/22/23 @ 12:04 by Ting Lux) S/P ACL repair Social History (Updated 01/15/23 @ 19:[address] Raj Hunt MD) household members: significant other Smoking Status: Never smoker substance use type: does not use ROS ROS ED ROS Narrative Constitutional: Negative for fever, chills. CVS: Negative for palpitations, chest pain, syncope. Respiratory: Positive for shortness of breath, cough. GI: Positive for abdominal pain, nausea, vomiting, diarrhea. Negative for constipation, melena, hematochezia. : Negative for dysuria, hematuria or frequency. Neuro: Positive for headache. EXAM Physical Exam Narrative Exam Narrative: CONST: Patient sitting in no acute distress. EYES: Normal inspection. ENT: Normal inspection, moist mucous membranes. NECK: Normal inspection. No meningismus. RESP: No respiratory distress, CTAB. CVS: Regular rate and rhythm, no murmur, no gallop. ABD: Soft with bilateral lower quadrant tenderness left greater than right, no guarding or rebound, nondistended. Back: Normal inspection, diffusely tender to palpation over entire lumbar back and spine with light touch. No step-offs or crepitus. SKIN: Color normal, no rash, warm, dry, intact. EXTREMITIES: Normal appearance, no pedal edema. 2+ radial and DP pulses. NEURO: Oriented x4. PSYCH: Normal affect. Const Vital Signs: 06/22/23 11:39 06/22/23 12:02 Temperature 98.5 F Temperature Source Temporal Pulse Rate 60 Respiratory Rate 18 Respiratory Effort Normal Non-Labored Respiratory Pattern Normal Blood Pressure 108/77 Blood Pressure Mean 87 Pulse Ox 96 Oxygen Delivery Method Room Air MDM MDM MDM Narrative Medical decision making narrative: Patient has constellation of URI symptoms, N/V/D, and back pain. He appears well and nontoxic. Afebrile with normal vital signs. On exam heart is regular rate with no murmurs. Lungs clear. Abdomen soft with bilateral lower quadrant tenderness but no peritoneal signs. CBC and CMP unremarkable except for total bilirubin of 1.4. He has no RUQ tenderness and normal LFTs so I do not think he has an acute gallbladder process. Imaging isn't indicated based on serial benign abdominal exams and other constellation of other symptoms suggesting more of a viral syndrome. His myalgias/back pain was treated with Toradol and Norflex. I prescribed Zofran and refilled has albuterol inhaler to use as needed, recommended [id number] analgesia, and discussed return precautions and he was discharged in stable condition. Lab Data Attestation: I reviewed the patient's lab results. Labs: Laboratory Results - last 24 hr 06/22/23 12:10 WBC 8.7 RBC 5.31 Hgb 15.1 Hct 45.3 MCV 85.3 MCH 28.4 MCHC 33.3 RDW Std Deviation 39.1 RDW Coeff of Noah 12.5 Plt Count 190 MPV 10.0 Immature Gran % (Auto) 0.500 Neut % (Auto) 62.7 Lymph % (Auto) 23.9 Maries % (Auto) 11.8 H Eos % (Auto) 0.6 Baso % (Auto) 0.5 Absolute Neuts (auto) 5.4 Absolute Lymphs (auto) 2.07 Nucleated RBC % 0 Sodium 138 Potassium 3.7 Chloride 105 Carbon Dioxide 27.0 Anion Gap 6 BUN 10 Creatinine 1.06 Estim Creat Clear Calc 138.87 Est GFR (MDRD) Af Amer 103 Est GFR (MDRD) Non-Af 85 BUN/Creatinine Ratio 9.4 L Glucose 93 Calcium 8.7 Total Bilirubin 1.40 H AST 16 ALT 33 Alkaline Phosphatase 49 Total Protein 7.6 Albumin 3.5 Globulin 4.1 Albumin/Globulin Ratio 0.9 Discharge Plan Triage Chief Complaint: General Illness ED Midlevel Provider: Amy Álvarez ED Provider: Lou Morris Dx/Rx/DC Orders Clinical Impression: Acute viral syndrome, Low back pain Instructions: Back Basics: A Healthy Spine, ED Viral Syndrome (Adult) Prescriptions: New ondansetron 4 mg tablet,disintegrating 4 mg PO Q8H PRN PRN (Reason: Nausea) Qty: 10 0RF No Action albuterol sulfate 2.5 MG/3 ML solution for nebulization 2.5 mg inhalation Q4H PRN PRN (Reason: Sob &/Or Wheezing) albuterol sulfate [Ventolin HFA] 1 INHALER inhaler 1 - 2 puff inhalation Q4H PRN PRN (Reason: Wheezing) Qty: 1 0RF Primary Care Provider: Care Physician,No Primary Referrals: Care Physician,No Primary [Primary Care Provider] - Activity Restrictions/Additional Instructions: Take Zofran as needed for nausea vomiting. Take Tylenol or ibuprofen for pain. If symptoms significantly change or worsen please be reevaluated. 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 Next of kin: [place] law dictates a PRIORITY LIST for identifying legal decision-maker/legal next of kin in the following order (LNOK): 1st: The patient?s legal guardian, if any 2nd: The patient's spouse (if status is questionable, consult Risk Management) 3rd: The patient?s adult child(marlon) (majority, if multiple children) 4th: The patient?s parents 5th: The patient?s adult siblings (majority, if multiple children siblings)
[2023-06-22] MEDS: Ketorolac 30 MG/ML Syringe IV (12:08)
[2023-06-22] MEDS: 0.9% Normal Saline (1000mL) 1,000 ML 999 ML IV (12:08)
[2023-06-22] MEDS: Ondansetron 4 MG/2 ML Vial IV (12:09)
[2023-06-22 12:23] LABS: Absolute Lymphocyte Count 2.07 X10^3/uL (0.83-4.51); Absolute Neutrophil Count 5.4 X10^3/uL (2.0-7.7); Basophil# 0.04 X10^3/uL; Basophil% 0.5 % (0-1); Eosinophil# 0.05 X10^3/uL; Eosinophils% 0.6 % (0-5); Hematocrit 45.3 % (40-54); Hemoglobin 15.1 g/dL (13.0-16.5); Lymphocyte # 2.07 X10^3/ul (0.83-4.51); Lymphocyte % 23.9 % (19-41); Mean Corp Hgb Conc 33.3 g/dL (32-36); Mean Corpuscular Hgb 28.4 pg (27.0-32.0); Mean Corpuscular Volume 85.3 fL (80-94); Monocyte# 1.02 X10^3/uL; Monocyte% 11.8 % (0-10); NRBC Flagged by Analyzer 0 % (0-5); Neutrophil # 5.44 X10^3/uL (2.7-7.7); Neutrophil % 62.7 % (47-70); Platelet Count 190 K/mm3 (150-450); RBC Distribution Width CV 12.5 % (11.6-14.6); RBC Distribution Width SD 39.1 fl (35.1-43.9); Red Blood Count 5.31 M/mm3 (4.6-6.2); White Blood Count 8.7 K/mm3 (4.4-11.0)
[2023-06-22 12:43] LABS: ALB/GLOB Ratio 0.9 RATIO (0.9-2.4); AST(SGOT) 16 U/L (15-37); Alanine Aminotransfer ALT/SGPT 33 U/L (16-61); Albumin, Serum 3.5 g/dL (3.2-5.0); Alkaline Phosphatase 49 U/L (45-117); Anion Gap 6 (5-15); BUN 10 mg/dL (7-18); BUN/Creat Ratio 9.4 RATIO (10-20); Calcium,Total 8.7 mg/dL (8.5-10.1); Chloride 105 mmol/L (98-107); Creatinine, Serum 1.06 mg/dL (0.70-1.30); EST Glomerular Filtration Rate 85 mL/min (>60); Est Glom Filt Rate - Afr Amer 103 mL/min (>60); Estimated Creatinine Clearance 138.87 ml/min; Globulin 4.1 g/dL (2.2-4.2); Glucose 93 mg/dL (74-106); Potassium 3.7 mmol/L (3.5-5.1); Protein, Total 7.6 g/dL (6.4-8.2); Sodium Level 138 mmol/L (136-145)
[2023-06-22] MEDS: Albuterol Sulfate 8 gm Inhaler (60 puffs) 2 PUFF INHALATION (12:44)
--- OUTSIDE RECORDS SUMMARY | 2023-06-22 12:54 | XMS RPT_ITS | CCD ---
Author Name Unknown Address [address] [place] [address] Organization [facility] Care Team Providers Care Cumulative Effects Analyst Name Role Phone Unavailable Primary Care Provider Unavailabl e PHYSICIAN, NONE Primary Care Physician Unavailab teena Connell PT, Amy Unavailable Unavailable Unavailable Primary Care Provider Unavailabl e Unavailable Primary Care Provider Unavailabl e FADI VILLANUEVA Referring Unavailable BELEM NEVILLE Attending Unavailable PHYSICIAN, NONE Primary Care Unavailable CORY VIDALES MD Attending Unavailable PHYSICIAN, NONE Primary Care Unavailable ROBERTO ELIAS, ONEIDA Bautista Attending Unavail able PHYSICIAN, NONE Primary Care Unavailable Medications Current Medications Medication Drug Class(es) Dates Sig (Normalized) Sig (Original) acetaminophen 325 mg / oxyCODONE hydrochloride 5 mg oral tablet (1 source) Opioid Agonist Start: 10-17-2021 End: 10-20-2021 take 1 tablet by mouth every six hours as needed for pain Percocet 5 mg-325 mg oral tablet Dose = 1 tab(s), Oral, q6h, PRN for pain, X 3 day(s), # 12 tab(s), 0 Refill(s), Lumbar strain, 128 Start Date: 10/17/21 Stop Date: 10/20/21 Status: Ordered benzonatate 100 mg oral capsule (1 source) Non-narcotic Antitussive Start: 03-07-2022 End: 03-12-2022 Tessalon Perles 100 mg oral capsule Dose : 100 mg = 1 cap(s), Oral, q8h, PRN as needed for cough, X 5 day(s), # 30 cap(s), 0 Refill(s), 03/12/22 10:00:00 EDT, Cough Start Date: 03/07/22 Stop Date: 03/12/22 Status: Ordered codeine phosphate 1.26 mg/ml / guaiFENesin 20 mg/ml oral solution (1 source) Opioid Agonist Start: 03-07-2022 End: 03-12-2022 take 1 dose by mouth every four hours as needed for cough codeine-guaifenesin 6.3 mg-100 mg/5 mL oral liquid Dose = 15 mL, Oral, q4h, PRN for cough, X 5 day(s), # 240 mL, 0 Refill(s), Cough, 129.5 Start Date: 03/07/22 Stop Date: 03/12/22 Status: Ordered cyclobenzaprine hydrochloride 10 mg oral tablet (2 sources) Muscle Relaxant Start: 09-28-2022 End: 10-03-2022 cyclobenzaprine 10 mg oral tablet Dose : 10 mg = 1 tab(s), Oral, TID, prn spasm/pain, # 15 tab(s), 0 Refill(s), 10/03/22 9:31:00 EDT Start Date: 09/28/22 Stop Date: 10/03/22 Status: Ordered Completed/Discontinued Medications Medication Drug Class(es) Dates Sig (Normalized) Sig (Original) [id number] 200 actuat albuterol 0.09 mg/actuat metered dose inhaler (8 sources) beta2-Adrenergic Agonist Start: 04-18-2021 take 2 puff(s) by inhalation every four hours as needed for wheezing albuterol HFA (VENTOLIN HFA) 90 mcg/actuation inhaler Indications: Asthmatic bronchitis without complication, unspecified asthma severity, unspecified whether persistent Inhale 2 Puffs as instructed every 4 hours as needed for wheezing/shortness of breath. 18 g 0 04/18/2021 Active Problems Problem Classification Problem Date Documented Da te Episodic/Chronic Asthma (3 sources) Asthma 11-27-2017 Chronic Contraceptive and procreative management (1 source) Patient encounter status; Translations: [Encounter for sterilization] Onset: 08-08-2021 08-08-2021 Episodic Other lower respiratory disease (1 source) Cough; Translations: [Cough, unspecified] Onset: 03-07-2022 Episodic Other male genital disorders (2 sources) Secondary erectile dysfunction; Translations: [Male erectile dysfunction, unspecified] Onset: 08-08-2021 Chronic Other upper respiratory infections (3 sources) Sore throat symptom; Translations: [Acute pharyngitis, unspecified] Onset: 06-16-2022 Episodic Residual codes; unclassified (1 source) Other specified personal risk factors, not elsewhere classified; Translations: [Other specified personal history presenting hazards to health] Episodic Sprains and strains (1 source) Lower back injury; Translations: [Strain of muscle, fascia and tendon of lower back, initial encounter] Onset: 10-17-2021 Episodic Results Test Name Value Interpretation Reference Range Facil ity Vital Signs Date Time Vital Sign Value Performing Clinician Facility 09-28-2022 09:13-0400 Body temperature 98.06 [degF] BELEM NEVILLE MD [facility] 09-28-2022 09:13-0400 Body weight 131.8 kg BELEM NEVILLE MD [facility] 09-28-2022 09:13-0400 Diastolic Blood Pressure Non-Invasive 84 1 BELME NEVILLE MD [facility] 09-28-2022 09:13-0400 Heart rate 75 /min BELEM NEVILLE MD [facility] 09-28-2022 09:13-0400 Respiratory rate 16 /min BELEM NEVILLE MD [facility] 09-28-2022 09:13-0400 Systolic Blood Pressure Non-Invasive 139 1 BELEM NEVILLE MD [facility] 06-16-2022 12:39-0500 Body temperature 99.39 [degF] Fadi Villanueva MD Work Phone: [facility] 06-16-2022 12:39-0500 Body weight 126.55 kg Fadi Villanueva MD Work Phone: [facility] 06-16-2022 12:39-0500 Diastolic blood pressure 70 mm[Hg] Fadi Villanueva MD Work Phone: [facility] 06-16-2022 12:39-0500 Heart rate 80 /min Fadi Villanueva MD Work Phone: [facility] 06-16-2022 12:39-0500 Respiratory rate 16 /min Fadi Villanueva MD Work Phone: [facility] 06-16-2022 12:39-0500 SaO2% (BldA) [Mass fraction] 97 % Fadi Villanueva MD Work Phone: [facility] 06-16-2022 12:39-0500 Systolic blood pressure 122 mm[Hg] Fadi Villanueva MD Work Phone: [facility] 03-07-2022 09:02-0400 Body height 185.4 cm ONEIDA MEJIA MD [facility] 03-07-2022 09:02-0400 Body temperature 98.42 [degF] ONEIDA MEJIA MD [facility] 03-07-2022 09:02-0400 Body weight 129.5 kg ONEIDA MEJIA MD [facility] 03-07-2022 09:02-0400 Diastolic blood pressure 83 mm[Hg] ONEIDA MEJIA MD [facility] 03-07-2022 09:02-0400 Heart rate 89 /min ONEIDA MEJIA MD [facility] 03-07-2022 09:02-0400 Respiratory rate 20 /min ONEIDA MEJIA MD [facility] 03-07-2022 09:02-0400 Systolic blood pressure 136 mm[Hg] ONEIDA MEJIA MD [facility] 03-05-2022 07:27-0400 Body temperature 98.71 [degF] Lupe Mckeon APRN.LIBRARY HELPER Work Phone: [facility] 03-05-2022 07:27-0400 Body weight 128.82 kg Lupe Mckeon APRN.LIBRARY HELPER Work Phone: [facility] 03-05-2022 07:27-0400 Diastolic blood pressure 74 mm[Hg] Lupe Mckeon APRN.LIBRARY HELPER Work Phone: [facility] 03-05-2022 07:27-0400 Heart rate 84 /min Lupe Mckeon APRN.LIBRARY HELPER Work Phone: [facility] 03-05-2022 07:27-0400 Respiratory rate 16 /min Lupe Mckeon APRN.LIBRARY HELPER Work Phone: [facility] 03-05-2022 07:27-0400 SaO2% (BldA) [Mass fraction] 98 % Lupe Mckeon APRN.LIBRARY HELPER Work Phone: [facility] 03-05-2022 07:27-0400 Systolic blood pressure 128 mm[Hg] Lupe Mckeon APRN.LIBRARY HELPER Work Phone: [facility] 10-17-2021 09:12-0400 Diastolic blood pressure 87 mm[Hg] CORY VIDALES MD [facility] 10-17-2021 09:12-0400 Heart rate 60 /min CORY VIDALES MD [facility] 10-17-2021 09:12-0400 Respiratory rate 16 /min CORY VIDALES MD [facility] 10-17-2021 09:12-0400 Systolic blood pressure 129 mm[Hg] CORY VIDALES MD [facility] 10-17-2021 07:49-0400 Body temperature 97.88 [degF] CORY VIDALES MD [facility] 10-17-2021 07:49-0400 Body weight 128 kg CORY VIDALES MD [facility] 10-17-2021 07:49-0400 Diastolic blood pressure 86 mm[Hg] CORY VIDALES MD [facility] 10-17-2021 07:49-0400 Heart rate 66 /min CORY VIDALES MD [facility] 10-17-2021 07:49-0400 Respiratory rate 18 /min CORY VIDALES MD [facility] 10-17-2021 07:49-0400 Systolic blood pressure 134 mm[Hg] CORY VIDALES MD [facility] Encounters Encounter Date Encounter Type Care Provider Facility Start: 09-28-2022 End: 09-28-2022 Emergency department patient visit BELEM NEVILLE Facility:B Start: 09-28-2022 End: 09-28-2022 Emergency department patient visit BELEM NEVILLE MD [facility] Start: 06-20-2022 Telephone encounter No Pcp Int [facility] [place] Procedures Date Procedure Procedure Detail Performing Clinician Start: 06-16-2022 STREP A MOLECULAR (POC) Lupe Mckeon APRN.LIBRARY HELPER Work Phone: Start: 03-05-2022 STREP A MOLECULAR (POC) Lupe Mckeon APRN.LIBRARY HELPER Work Phone: None (qualifier value) CORY VIDALES MD Plan of Treatment Date Care Activity Detail Author Start: 06-08-2022 DEPRESSION ASSESSMENT DEPRESSION ASSESSMENT [facility] Start: 03-05-2022 End: 03-19-2022 Influenza virus A and B RNA and SARS-CoV-2 (COVID-19) N gene panel - Respiratory specimen by MARCK with probe detection COVID WITH FLUA+B, ROUTINE Microbiology Routine Sore throat At increased risk of exposure to COVID-19 virus Expected: 03/05/2022, Expires: 03/19/2022 [facility] Work Phone: Payers Date Payer Category Payer Private Health Insurance [id number] 2017 Medicaid [facility] MEDICAID [facility] [employer] MEDICAID OF [place] [id number] 2017-Present [phone] [address] [place] [address] Medicaid [id number] 2017 Private Health Insurance [id number] 1989 Unknown [id number] 1989 Unknown [id number] 1989 Unknown [id number] Social History Date Type Detail Facility Tobacco smoking status DEIS Tobacco smoking consumption unknown [facility] Start: 1990 Sex Assigned At Not on file S [facility] Work Phone: Start: 02-23-2022 End: 03-05-2022 Exposure to SARS-CoV-2 (event) Not sure [facility] Start: 05-05-2018 End: 06-16-2022 Tobacco smoking status Never smoked tobacco (finding) [facility] Sex Assigned At Sex [facility] History of tobacco use Passive smoker [facility] Work Phone: Start: 05-05-2018 End: 06-16-2022 Tobacco use and exposure Smokeless tobacco non-user [facility] Work Phone: Start: 03-05-2022 End: 06-16-2022 Alcohol intake Not Asked [facility] Start: 1990 Sex Assigned At Male C [facility] Functional Status Date Assessment Result Facility 09-28-2022 Functional Status Standard Safet y ID band on, Call device within reach, Bed in low position, Wheels locked, Upper/Half-Length side-rails up, Bedside Cart Locked, Safety level maintained [facility] 03-07-2022 Functional Status Resting [facility] 10-17-2021 Functional Status [facility] 10-17-2021 Functional Status [facility] Mental Status Date Assessment Result Facility 03-07-2022 Mental Status Oriented x 4 [facility] 10-17-2021 Mental Status [facility] 10-17-2021 Mental Status [facility] Clinical Notes 10-17-2021 to 09-28-2022 Telephone Encounter - Laci Sylvester RN - 06/20/2022 9:48 AM Shira Villanueva MD - 06/16/2022 12:43 PM ESTTelephone Encounter - Radha Roth LPN - 03/07/2022 6:24 PM EDT Note Date & Type Note Facility 09-28-2022 Hospital Discharg e instructions Patient Education 09/28/2022 09:30:34 Back Pain (Acute or Chronic) Back Pain (Acute or Chronic) Back pain is one of the most common problems. The good news is that most people feel better in 1 to 2 weeks, and most of the rest in 1 to 2 months. Most people can remain active. People who have pain describe it differently not everyone is the same. The pain can be sharp, stabbing, shooting, aching, cramping or burning. Movement, standing, bending, lifting, sitting, or walking may worsen pain. It can be localized to one spot or area, or it can be more generalized. It can spread or radiate upwards, to the front, or go down your arms or legs (sciatica). It can cause muscle spasm. Most of the time, mechanical problems with the muscles or spine cause the pain. Mechanical problems are usually caused by an injury to the muscles or ligaments. While illness can cause back pain, it is usually not caused by a serious illness. Mechanical problems include: Physical activity such as sports, exercise, work, or normal activity Overexertion, lifting, pushing, pulling incorrectly or too aggressively Sudden twisting, bending, or stretching from an accident, or accidental movement Poor posture Stretching or moving wrong, without noticing pain at the time Poor coordination, lack of regular exercise (check with your doctor about this) Spinal disc disease or arthritis Stress Pain can also be related to , or illness like appendicitis, bladder or kidney infections, pelvic infections, and many other things. Acute back pain usually gets better in 1 to 2 weeks. Back pain related to disk disease, arthritis in the spinal joints or spinal stenosis (narrowing of the spinal canal) can become chronic and last for months or years. Unless you had a physical injury (for example, a car accident or fall) X-rays are usually not needed for the initial evaluation of back pain. If pain continues and does not respond to medical treatment, X-rays and other tests may be needed. Home care Try these home care recommendations: When in bed, try to find a position of comfort. A firm mattress is best. Try lying flat on your back with pillows under your knees. You can also try lying on your side with your knees bent up towards your chest and a pillow between your knees. At first, do not try to stretch out the sore spots. If there is a strain, it is not like the good soreness you get after exercising without an injury. In this case, stretching may make it worse. Don't sit for long periods, as in a long car ride or during other travel. This puts more stress on the lower back than standing or walking. During the first 24 to 72 hours after an acute injury or flare up of chronic back pain, apply an ice pack to the painful area for 20 minutes and then remove it for 20 minutes. Do this over a period of 60 to 90 minutes or several times a day. This will reduce swelling and pain. Wrap the ice pack in a thin towel or plastic to protect your skin. You can start with ice, then switch to heat. Heat (hot shower, hot bath, or heating pad) reduces pain and works well for muscle spasms. Heat can be applied to the painful area for 20 minutes then remove it for 20 minutes. Do this over a period of 60 to 90 minutes or several times a day. Do not sleep on a heating pad. It can lead to skin salinas or tissue damage. You can alternate ice and heat therapy. Talk with your doctor about the best treatment for your back pain. Therapeutic massage can help relax the back muscles without stretching them. Be aware of safe lifting methods and do not lift anything without stretching first. Medicines Talk to your doctor before using medicine, especially if you have other medical problems or are taking other medicines. You may use [id number] medicine as directed on the bottle to control pain, unless another pain medicine was prescribed. If you have chronic conditions like diabetes, liver or kidney disease, stomach ulcers, or gastrointestinal bleeding, or are taking blood thinners, talk to your doctor before taking any medicine. Be careful if you are given a prescription medicines, narcotics, or medicine for muscle spasms. They can cause drowsiness, affect your coordination, reflexes, and judgement. Do not drive or operate heavy machinery. Follow-up care Follow up with your healthcare provider, or as advised. A radiologist will review any X-rays that were taken. Your provide will notify you of any new findings that may affect your care. Call 911 Call 911 if any of the following occur: Trouble breathing Confusion Very drowsy or trouble awakening Fainting or loss of consciousness Rapid or very slow heart rate Loss of bowel or bladder control When to seek medical advice Call your healthcare provider right away if any of these occur: Pain becomes worse or spreads to your legs Weakness or numbness in one or both legs Numbness in the groin or genital area [id number] [employer]. [address] [place] [address], [place] [address]. All rights reserved. This information is not intended as a substitute for professional medical care. Always follow your healthcare professional's instructions. Follow Up Care 09/28/2022 09:09:05 With:LUCY TALLEY Address: [address] [place] [address] [phone] Business (1) When:2-4 days Comments:Schedule appointment as soon as possibleReturn to ED if symptoms worsenLimit activity. May use tylenol With:NONE PHYSICIAN Address:Unknown When:2-4 days [facility] 09-28-2022 Emergency department Discharge summary Discharge Instructions Thank you for allowing [facility] to assist you with your healthcare needs. The following is important discharge information regarding your hospital visit. Diagnosis from Today's Visit Back pain What to Do Next Instructions from Your Care Team Discharge Return to Work, School, or Sports (Return to Work, School, or Sports) - Ordered -- 10/01/22, May return to: work, 09/28/22 9:31:00 EDT Post Acute Orders No qualifying data available. You Need to Schedule the Following Appointments Follow Up with LUCY TALLEY When Within 2-4 days Why: Schedule appointment as soon as possible Return to ED if symptoms worsen Limit activity. May use tylenol Where: [address] [facility] [place] [address]- [phone] Business (1) Follow Up with NONE PHYSICIAN When Within 2-4 days Allergies NKA Medications Please ask your primary doctor or pharmacist before taking any other medication not listed, including over the counter drugs, herbal medications, vitamins and or supplements as they may interact with your home medications. What How Much When Instructions Last Dose New cyclobenzaprine (cyclobenzaprine 10 mg oral tablet) 1 tab(s) by mouth Three (3) times a day prn spasm/ pain Printed Prescription New lidocaine topical (Lidoderm 5% topical patch) 1 patch(es) Topical Once a day remove patches after 12 hours Printed Prescription New naproxen (Anaprox-DS 550 mg oral tablet) 1 tab(s) by mouth Two (2) times a day Duration: 10 Days Printed Prescription New predniSONE (predniSONE 10 mg oral tablet) 3 by mouth Two (2) times a day 1st dose in am Printed Prescription Unchanged albuterol Please take this list to your next doctor s visit. Bring all medications you take, including over the counter medications, herbals and other supplements with you to your doctor s visit. Patients and families are reminded to discard old lists and to update any records with all medication providers or retail pharmacies. Education Materials Back Pain (Acute or Chronic) Back pain is one of the most common problems. The good news is that most people feel better in 1 to 2 weeks, and most of the rest in 1 to 2 months. Most people can remain active. People who have pain describe it differently not everyone is the same. The pain can be sharp, stabbing, shooting, aching, cramping or burning. Movement, standing, bending, lifting, sitting, or walking may worsen pain. It can be localized to one spot or area, or it can be more generalized. It can spread or radiate upwards, to the front, or go down your arms or legs (sciatica). It can cause muscle spasm. Most of the time, mechanical problems with the muscles or spine cause the pain. Mechanical problems are usually caused by an injury to the muscles or ligaments. While illness can cause back pain, it is usually not caused by a serious illness. Mechanical problems include: Physical activity such as sports, exercise, work, or normal activity Overexertion, lifting, pushing, pulling incorrectly or too aggressively Sudden twisting, bending, or stretching from an accident, or accidental movement Poor posture Stretching or moving wrong, without noticing pain at the time Poor coordination, lack of regular exercise (check with your doctor about this) Spinal disc disease or arthritis Stress Pain can also be related to , or illness like appendicitis, bladder or kidney infections, pelvic infections, and many other things. Acute back pain usually gets better in 1 to 2 weeks. Back pain related to disk disease, arthritis in the spinal joints or spinal stenosis (narrowing of the spinal canal) can become chronic and last for months or years. Unless you had a physical injury (for example, a car accident or fall) X-rays are usually not needed for the initial evaluation of back pain. If pain continues and does not respond to medical treatment, X-rays and other tests may be needed. Home care Try these home care recommendations: When in bed, try to find a position of comfort. A firm mattress is best. Try lying flat on your back with pillows under your knees. You can also try lying on your side with your knees bent up towards your chest and a pillow between your knees. At first, do not try to stretch out the sore spots. If there is a strain, it is not like the good soreness you get after exercising without an injury. In this case, stretching may make it worse. Don't sit for long periods, as in a long car ride or during other travel. This puts more stress on the lower back than standing or walking. During the first 24 to 72 hours after an acute injury or flare up of chronic back pain, apply an ice pack to the painful area for 20 minutes and then remove it for 20 minutes. Do this over a period of 60 to 90 minutes or several times a day. This will reduce swelling and pain. Wrap the ice pack in a thin towel or plastic to protect your skin. You can start with ice, then switch to heat. Heat (hot shower, hot bath, or heating pad) reduces pain and works well for muscle spasms. Heat can be applied to the painful area for 20 minutes then remove it for 20 minutes. Do this over a period of 60 to 90 minutes or several times a day. Do not sleep on a heating pad. It can lead to skin salinas or tissue damage. You can alternate ice and heat therapy. Talk with your doctor about the best treatment for your back pain. Therapeutic massage can help relax the back muscles without stretching them. Be aware of safe lifting methods and do not lift anything without stretching first. Medicines Talk to your doctor before using medicine, especially if you have other medical problems or are taking other medicines. You may use [id number] medicine as directed on the bottle to control pain, unless another pain medicine was prescribed. If you have chronic conditions like diabetes, liver or kidney disease, stomach ulcers, or gastrointestinal bleeding, or are taking blood thinners, talk to your doctor before taking any medicine. Be careful if you are given a prescription medicines, narcotics, or medicine for muscle spasms. They can cause drowsiness, affect your coordination, reflexes, and judgement. Do not drive or operate heavy machinery. Follow-up care Follow up with your healthcare provider, or as advised. A radiologist will review any X-rays that were taken. Your provide will notify you of any new findings that may affect your care. Call 911 Call 911 if any of the following occur: Trouble breathing Confusion Very drowsy or trouble awakening Fainting or loss of consciousness Rapid or very slow heart rate Loss of bowel or bladder control When to seek medical advice Call your healthcare provider right away if any of these occur: Pain becomes worse or spreads to your legs Weakness or numbness in one or both legs Numbness in the groin or genital area [id number] [employer]. [address] [place] [address]. All rights reserved. This information is not intended as a substitute for professional medical care. Always follow your healthcare professional's instructions. Additional Information VACCINATE! IT SAVES LIVES! Members of the community who have not yet received the COVID-19 vaccine and would like to receive it can visit one of [facility] vaccine clinics. There are many vaccine clinic locations within the [facility]. For locations and available times, please visit [email or web address] It is important to note that some COVID mobile vaccine clinics are held outdoors and may be canceled in rainy or stormy conditions. To learn more about pediatric vaccinations (ages 5-11), we invite you to visit the [facility] webpage. [email or web address] To learn more about the COVID-19 vaccine, we invite you to visit the CDC website for a list of frequently asked questions. https://www.cdc.gov/coronavirus/ 2019-ncov/vaccines/faq.html [facility] Patient Portal Access Instructions: Stay connected with your healthcare team and access your personal medical information anytime with the [facility] Patient Portal. If you would like a full copy of your medical records please contact the [facility] Medical Records Department Thursday through Thursday between 8a.m. and 4:30p.m. Please follow the directions below to access the portal: 1.Access the email account you provided upon registration to the [facility].2.Look for an invitation email from [facility].3.Open the email and access the invitation link: Accept Invitation to [facility].Fill in the required rushing to create your account. Sign into [email or web address] with your username and password that you created in the above steps to stay up to date. You can then view a summary of results, a summary of your visits, and the ability to download your summaries to your computer or send the information securely to a physician. Remember that your healthcare information is confidential, so carefully consider who you will allow to register on the [facility] Patient Portal for access to your information. You can also access the [facility] Patient Portal on the [employer] rhoda. Simply click on Health Records under Health Data and then click on the [employer] logo. HOW TO SAFELY DISPOSE OF PRESCRIPTION MEDICATIONS Please use one of the following methods to safely dispose of your unused medications. 1.Use a drug disposal kit: the drug disposal pouch allows you to safely discard your old and unused drugs. Ask your nurse to give you one when you are discharged.2.Visit a local take-back location: Many local pharmacies and police departments have programs that collect old and unwanted prescription drugs. Call your local pharmacy or go to http://Gl[employer] Pro.[employer]/9J1Fp8r to find one close to you.3.Make use of household items: Use cat litter or old coffee grounds to dispose medications if other options are not available. Mix your drugs with these household products, seal them in an airtight container and throw it into the garbage. Call [facility]: [phone] to be sure your drugs can be disposed of in this way. Some medicines may require a different approach.4.Never flush your medications down the toilet. IF YOU HAVE BEEN PRESCRIBED AN OPIOIDS FOR PAIN If you have been prescribed an opioid (such as hydrocodone, oxycodone or morphine), it is critical to understand the possible side effects and risks of opioid pain medications. Even when taken as directed, opioids can have several side effects including: Tolerance, meaning you might need to take more of a medication for the same pain relief. Nausea, vomiting and/or constipation. Sleepiness, dizziness, dry mouth, confusion, depression or itching. Physical dependence, meaning you have withdrawal symptoms when a medication is stopped ? this can develop within a few days. KNOW YOUR RESPONSIBILITIES It is important to know exactly how much and how often to take the opioid pain medications you are prescribed. Never take opioids in higher amounts or more often than prescribed. Do not combine opioids with alcohol or other drugs that cause drowsiness, such as benzodiazepines, also known as benzos, including diazepam and alprazolam, muscle relaxants or sleep aids. Never sell or share prescription opioids. This is illegal. Store opioids in a secure place and out of reach of others (including children, family, friends and visitors). The last page(s) of this document has been signed and retained as a CHART COPY Signatures Patient Education Materials Back Pain (Acute or Chronic) Medication Leaflets My discharge plan and instructions have been reviewed and explained to me and IRACHEAL JEREMY M understand my current condition and have read and understand these discharge instructions. I have received a written copy of the plan/instructions. If I have questions, I am aware that I should contact my doctor. 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 Dept, phoned to verified patient was notified of positive gonorrhea and was he treated. Advised patient was notified and received rocephin 500 mg on 06-17-22. documented in this encounter [facility] 06-16-2022 Note HNO ID: [id number] Author: Fadi Villanueva MD Service: ? Author Type: Physician Type: Progress Notes Filed: 06/16/2022 5:46 PM Note Text: Patient presents with: Sore Throat: jaw pain x 1 week HPI: Feeling sore throat for 1 week. Positive symptoms: Sore throat, Malaise, hurts to swallow, Negative symptoms: Cough, Nasal Congestion, Rhinorrhea, Fever, Diarrhea, MEDICATIONS: Current Outpatient Medications Medication Sig albuterol HFA (VENTOLIN HFA) 90 mcg/actuation inhaler Inhale 2 Puffs as instructed every 4 hours as needed for wheezing/shortness of breath. No current facility-administered medications for this visit. ALLERGIES: ALLERGIES No Known Allergies VITALS: BP 122/70 Pulse 80 Temp 37.4 ?C (99.4 ?F) Resp 16 Wt 126.6 kg (279 lb) SpO2 97% BMI 36.81 kg/m? PHYSICAL EXAM: GEN: mildly ill appearing HEENT: PERRL, EOMI, conjunctiva clear Ears: canals occluded by cerumen Sinuses: non-tender frontal sinus, non-tender maxillary sinuses Throat: moist mucous membranes, tonsillar erythema and exudate Neck: supple, no thyromegaly, no lymphadenopathy HEART: regular rate and rhythm, no murmurs LUNGS: clear to auscultation, no wheezes or crackles, no increased WOB ASSESSMENT/PLAN: 1. Sore throat - ICD9: 462, ICD10: J02.9 - STREP A MOLECULAR (POC) - negative. - suspect viral pharyngitis. Differential includes mononucleosis. - Discussed supportive care treatment with rest, hydration, and analgesia. - MONOTEST, INFECTIOUS MONO - GC/CHLAMYDIA DNA DET rule out gonorrhea since he performed oral sex before the symptoms started. Morton discussed. Morton is viral illness without curative treatment. Treatment is supportive care with rest, adequate hydration, and symptom relief. Symptoms may last for several weeks. Fadi Villanueva MD [facility] 06-16-2022 History of Presen t illness Narrative Patient presents with: Sore Throat: jaw pain x 1 week HPI: Feeling sore throat for 1 week. Positive symptoms: Sore throat, Malaise, hurts to swallow, Negative symptoms: Cough, Nasal Congestion, Rhinorrhea, Fever, Diarrhea, MEDICATIONS: Current Outpatient Medications Medication Sig albuterol HFA (VENTOLIN HFA) 90 mcg/actuation inhaler Inhale 2 Puffs as instructed every 4 hours as needed for wheezing/shortness of breath. No current facility-administered medications for this visit. ALLERGIES: ALLERGIES No Known Allergies VITALS: BP 122/70 Pulse 80 Temp 37.4 C (99.4 F) Resp 16 Wt 126.6 kg (279 lb) SpO2 97% BMI 36.81 kg/m PHYSICAL EXAM: GEN: mildly ill appearing HEENT: PERRL, EOMI, conjunctiva clear Ears: canals occluded by cerumen Sinuses: non-tender frontal sinus, non-tender maxillary sinuses Throat: moist mucous membranes, tonsillar erythema and exudate Neck: supple, no thyromegaly, no lymphadenopathy HEART: regular rate and rhythm, no murmurs LUNGS: clear to auscultation, no wheezes or crackles, no increased WOB ASSESSMENT/PLAN: 1. Sore throat - ICD9: 462, ICD10: J02.9 - STREP A MOLECULAR (POC) - negative. - suspect viral pharyngitis. Differential includes mononucleosis. - Discussed supportive care treatment with rest, hydration, and analgesia. - MONOTEST, INFECTIOUS MONO - GC/CHLAMYDIA DNA DET rule out gonorrhea since he performed oral sex before the symptoms started. Morton discussed. Morton is viral illness without curative treatment. Treatment is supportive care with rest, adequate hydration, and symptom relief. Symptoms may last for several weeks. Fadi Villanueva MD documented in this encounter [facility] 03-07-2022 Miscellaneous Notes Phone call placed detailed message left on patients identified voicemail. Radha Roth LPN ----- Message from Bessie Castro APRN.LIBRARY HELPER sent at 03/07/2022 9:14 AM EDT ----- Please advise patient of negative COVID and flu test (result not viewed in MyChart). documented in this encounter [facility] 03-07-2022 Hospital Discharg e instructions Patient Education 03/07/2022 09:19:39 Hiccups Hiccups The diaphragm is a dome-shaped muscle located at the bottom of the chest. It is the main muscle used for breathing. When you inhale, it pulls down to draw air into the lungs. When you exhale, the muscle pushes up to push air out of the lungs. A hiccup is a spasm of the diaphragm muscle. This causes you to quickly inhale air, causing the hiccup sound. This may occur after eating or drinking too quickly or too much or having an irritation in the stomach or throat. It may also occur when feeling nervous or excited. Often hiccups seem to happen for no clear reason. In most cases, hiccups are not serious. They last just a few minutes, and often go away without any treatment. There are many home remedies for treating hiccups and sometimes they work. These include: Holding your breath while counting to 10 Stimulating the back of your throat by: oRubbing the back of your tongue with a finger (just short of gagging) oSipping cold water oGargling with water oPutting sugar on the back of your tongue Breathing out with your mouth closed and your nose pinched (like when you are popping your ears on an airplane) Pulling your knees to your chest and leaning forward If the hiccups continue, medicine may be needed. In rare cases, hiccups may last for days or weeks, but this is very unusual. When this occurs, it is often the sign of another medical problem. In these cases, tests may be done to help find the cause. Home care If your healthcare provider has prescribed medicine, take it as directed. Try the home remedies mentioned above. If using sugar, place 1/2 teaspoon of dry sugar and let it dissolve on the back of your tongue. If needed, repeat this process 3 times at 2-minute intervals. People who have diabetes should not use this home remedy. Follow-up care Follow up with your healthcare provider, or as directed. If testing was done, you ll be told the results and whether there are any new findings that affect your care. When to seek medical advice Call your healthcare provider right away if any of these occur: Hiccups continue for more than 3 hours Hiccups affect sleeping or keep you from eating Abdominal pain Call 911 Call 911 if any of these occur: Trouble breathing or swallowing Unusually fast heart rate Fainting Vomiting blood [phone] [employer]. [address] [place] [address], [place] [address]. All rights reserved. This information is not intended as a substitute for professional medical care. Always follow your healthcare professional's instructions. Follow Up Care 03/07/2022 08:55:55 With:CINDY TERRELL DO Address: [address] [place] [phone] When:2-4 days [facility] 03-07-2022 Note Discharge Instructions Thank you for allowing [facility] to assist you with your healthcare needs. The following is important discharge information regarding your hospital visit. Diagnosis from Today's Visit Cough Cough Hiccups What to Do Next Instructions from Your Care Team No qualifying data available. Post Acute Orders No qualifying data available. You Need to Schedule the Following Appointments Follow Up with CINDY TERRELL DO When Within 2-4 days Where: [address] [place] [id number] [phone] Allergies NKA Medications Please ask your primary doctor or pharmacist before taking any other medication not listed, including over the counter drugs, herbal medications, vitamins and or supplements as they may interact with your home medications. What How Much When Why Instructions Last Dose New codeine-guaifenesin (codeine-guaifenesin 6.3 mg-100 mg/ 5 mL oral liquid) 15 Milliliter by mouth Every 4 hours as needed for for cough Cough Duration: 5 Days Printed Prescription Unchanged albuterol Please take this list to your next doctor s visit. Bring all medications you take, including over the counter medications, herbals and other supplements with you to your doctor s visit. Patients and families are reminded to discard old lists and to update any records with all medication providers or retail pharmacies. Medication Leaflets codeine and guaifenesin (WISAM downey and pina ROJAS a sin) Allfen CD, Cheracol with Codeine, Cheratussin AC, Codar GF, Duraganidin NR, Guaiatussin AC, Iophen-C NR, Mar-cof CG, M-Clear, Mytussin AC, Maximo Wilburn What is the most important information I should know about codeine and guaifenesin? Codeine can slow or stop your breathing, and may be habit-forming. MISUSE OF THIS MEDICINE CAN CAUSE ADDICTION, OVERDOSE, OR , especially in a child or other person using the medicine without a prescription. Do not give this medicine to anyone under 18. What is codeine and guaifenesin? Codeine is a narcotic cough suppressant. It affects the signals in the brain that trigger cough reflex. Guaifenesin is an expectorant. It helps loosen congestion in your chest and throat, making it easier to cough out through your mouth. Codeine and guaifenesin is a combination medicine used to treat cough and chest congestion caused by allergies, the common cold, or the flu. This medicine will not treat a cough that is caused by smoking, asthma, or emphysema. Codeine and guaifenesin may also be used for purposes not listed in this medication guide. What should I discuss with my healthcare provider before taking codeine and guaifenesin? You should not take this medicine if you are allergic to codeine or guaifenesin. In some people, codeine breaks down rapidly in the liver and reaches higher than normal levels in the body. This can cause dangerously slow breathing and may cause , especially in a child. Do not give this medicine to anyone under 18. To make sure codeine and guaifenesin is safe for you, tell your doctor if you have ever had: a cough with mucus; asthma, COPD, or other breathing disorder; blockage in your digestive tract (stomach or intestines); a head injury or brain tumor; low blood pressure; or drug or alcohol addiction. If you use codeine while you are , your baby could become dependent on the drug. This can cause life-threatening withdrawal symptoms in the baby after it is born. Babies born dependent on habit-forming medicine may need medical treatment for several weeks. Tell your doctor if you are or plan to become . Do not breast-feed. Codeine can pass into breast milk and may cause drowsiness, breathing problems, or in a nursing baby. Do not breast-feed. How should I take codeine and guaifenesin? Follow all directions on your prescription label. Codeine can slow or stop your breathing. Never use codeine and guaifenesin in larger amounts, or for longer than prescribed. Cough or cold medicine is usually taken only for a short time until your symptoms clear up. Codeine may be habit-forming, even at regular doses. Never share this medicine with another person, especially someone with a history of drug abuse or addiction. MISUSE OF NARCOTIC MEDICINE CAN CAUSE ADDICTION, OVERDOSE, OR , especially in a child or other person using the medicine without a prescription. Selling or giving away codeine is against the law. Measure liquid medicine with the dosing syringe provided, or with a special dose-measuring spoon or medicine cup. If you do not have a dose-measuring device, ask your pharmacist for one. Call your doctor if your symptoms do not improve after 7 days of treatment, or if you have a fever with a headache or skin rash. Store at room temperature away from moisture and heat. Do not freeze. Keep track of the amount of medicine used from each new bottle. Codeine is a drug of abuse and you should be aware if anyone is using your medicine improperly or without a prescription. What happens if I miss a dose? Since codeine and guaifenesin is used when needed, you may not be on a dosing schedule. If you are on a schedule, use the missed dose as soon as you remember. Skip the missed dose if it is almost time for your next scheduled dose. Do not use extra medicine to make up the missed dose. What happens if I overdose? Seek emergency medical attention or call the Poison Help line at . A codeine overdose can be fatal, especially in a child or other person using the medicine without a prescription. Overdose symptoms may include slow breathing and heart rate, severe drowsiness, muscle weakness, cold and clammy skin, pinpoint pupils, and fainting. What should I avoid while taking codeine and guaifenesin? This medicine may impair your thinking or reactions. Avoid driving or operating machinery until you know how this medicine will affect you. Dizziness or severe drowsiness can cause falls or other accidents. Do not drink alcohol. Dangerous side effects or could occur. Ask a doctor or pharmacist before using any other cough or cold medicine. Many combination medicines contain guaifensin. Taking certain products together can cause you to get too much of this medicine. What are the possible side effects of codeine and guaifenesin? Get emergency medical help if you have signs of an allergic reaction: hives; difficult breathing; swelling of your face, lips, tongue, or throat. Like other narcotic medications, codeine can slow your breathing. may occur if breathing becomes too weak. A person caring for you should seek emergency medical attention if you have slow breathing with long pauses, blue colored lips, or if you are hard to wake up. Stop using this medicine and call your doctor at once if you have: noisy breathing, sighing, shallow breathing; a slow heart rate or weak pulse; severe dizziness or drowsiness; confusion, hallucinations, unusual thoughts or behavior; little or no urinating; severe constipation; or slow heart rate, weak or shallow breathing. Serious side effects may be more likely in older adults and those who are overweight, malnourished, or debilitated. Common side effects may include: constipation; or mild drowsiness. This is not a complete list of side effects and others may occur. Call your doctor for medical advice about side effects. You may report side effects to FDA at 5-828-ZFW-3622. What other drugs will affect codeine and guaifenesin? Taking codeine and guaifenesin with other drugs that make you sleepy or slow your breathing can cause dangerous side effects or . Ask your doctor before taking a sleeping pill, narcotic pain medicine, prescription cough medicine, a muscle relaxer, or medicine for anxiety, depression, or seizures. Other drugs may interact with codeine and guaifenesin, including prescription and ohzx-zut-arvbgcl medicines, vitamins, and herbal products. Tell your doctor about all your current medicines and any medicine you start or stop using. Where can I get more information? Your pharmacist can provide more information about codeine and guaifenesin. Remember, keep this and all other medicines out of the reach of children, never share your medicines with others, and use this medication only for the indication prescribed. Every effort has been made to ensure that the information provided by [facility]. ('[employer]') is accurate, up-to-date, and complete, but no guarantee is made to that effect. Drug information contained herein may be time sensitive. [employer] information has been compiled for use by healthcare practitioners and consumers in the [place] and therefore [employer] does not warrant that uses outside of the [place] are appropriate, unless specifically indicated otherwise. [employer] drug information does not endorse drugs, diagnose patients or recommend therapy. [employer] drug information is an informational resource designed to assist licensed healthcare practitioners in caring for their patients and/or to serve consumers viewing this service as a supplement to, and not a substitute for, the expertise, skill, knowledge and judgment of healthcare practitioners. The absence of a warning for a given drug or drug combination in no way should be construed to indicate that the drug or drug combination is safe, effective or appropriate for any given patient. [facility] does not assume any responsibility for any aspect of healthcare administered with the aid of information [employer] provides. The information contained herein is not intended to cover all possible uses, directions, precautions, warnings, drug interactions, allergic reactions, or adverse effects. If you have questions about the drugs you are taking, check with your doctor, nurse or pharmacist. Copyright 9610-8346 [facility]. Version: 8.02. Revision Date: 06/22/2017. Education Materials Hiccups The diaphragm is a dome-shaped muscle located at the bottom of the chest. It is the main muscle used for breathing. When you inhale, it pulls down to draw air into the lungs. When you exhale, the muscle pushes up to push air out of the lungs. A hiccup is a spasm of the diaphragm muscle. This causes you to quickly inhale air, causing the hiccup sound. This may occur after eating or drinking too quickly or too much or having an irritation in the stomach or throat. It may also occur when feeling nervous or excited. Often hiccups seem to happen for no clear reason. In most cases, hiccups are not serious. They last just a few minutes, and often go away without any treatment. There are many home remedies for treating hiccups and sometimes they work. These include: Holding your breath while counting to 10 Stimulating the back of your throat by: oRubbing the back of your tongue with a finger (just short of gagging) oSipping cold water oGargling with water oPutting sugar on the back of your tongue Breathing out with your mouth closed and your nose pinched (like when you are popping your ears on an airplane) Pulling your knees to your chest and leaning forward If the hiccups continue, medicine may be needed. In rare cases, hiccups may last for days or weeks, but this is very unusual. When this occurs, it is often the sign of another medical problem. In these cases, tests may be done to help find the cause. Home care If your healthcare provider has prescribed medicine, take it as directed. Try the home remedies mentioned above. If using sugar, place 1/2 teaspoon of dry sugar and let it dissolve on the back of your tongue. If needed, repeat this process 3 times at 2-minute intervals. People who have diabetes should not use this home remedy. Follow-up care Follow up with your healthcare provider, or as directed. If testing was done, you ll be told the results and whether there are any new findings that affect your care. When to seek medical advice Call your healthcare provider right away if any of these occur: Hiccups continue for more than 3 hours Hiccups affect sleeping or keep you from eating Abdominal pain Call 911 Call 911 if any of these occur: Trouble breathing or swallowing Unusually fast heart rate Fainting Vomiting blood [phone] [employer]. [address] [place] [address]. All rights reserved. This information is not intended as a substitute for professional medical care. Always follow your healthcare professional's instructions. Additional Information VACCINATE! IT SAVES LIVES! Members of the community who have not yet received the COVID-19 vaccine and would like to receive it can visit one of [facility] vaccine clinics. There are many vaccine clinic locations within the [facility]. For locations and available times, please visit [email or web address]. It is important to note that some COVID mobile vaccine clinics are held outdoors and may be canceled in rainy or stormy conditions. To learn more about pediatric vaccinations (ages 5-11), we invite you to visit the [facility] webpage. [email or web address] To learn more about the COVID-19 vaccine, we invite you to visit the [facility] website for a list of frequently asked questions. [email or web address] [facility] Patient [facility] Access Instructions: Stay connected with your healthcare team and access your personal medical information anytime with the [facility] Patient Portal. If you would like a full copy of your medical records please contact the [facility] Medical Records Department Thursday through Thursday between 8a.m. and 4:30p.m. Please follow the directions below to access the portal: 1.Access the email account you provided upon registration to the [facility].2.Look for an invitation email from [facility].3.Open the email and access the invitation link: Accept Invitation to [facility]4.Fill in the required rushing to create your account. Sign into [email or web address] with your username and password that you created in the above steps to stay up to date. You can then view a summary of results, a summary of your visits, and the ability to download your summaries to your computer or send the information securely to a physician. Remember that your healthcare information is confidential, so carefully consider who you will allow to register on the [facility] Patient Portal for access to your information. You can also access the [facility] Patient Portal on the [employer] rhoda. Simply click on Health Records under Health Data and then click on the [facility] logo. HOW TO SAFELY DISPOSE OF PRESCRIPTION MEDICATIONS Please use one of the following methods to safely dispose of your unused medications. 1.Use a drug disposal kit: the drug disposal pouch allows you to safely discard your old and unused drugs. Ask your nurse to give you one when you are discharged.2.Visit a local take-back location: Many local pharmacies and police departments have programs that collect old and unwanted prescription drugs. Call your local pharmacy or go to http://bit.HybridSite Web Services/3F6Jd2o to find one close to you.3.Make use of household items: Use cat litter or old coffee grounds to dispose medications if other options are not available. Mix your drugs with these household products, seal them in an airtight container and throw it into the garbage. Call [facility]: [phone] to be sure your drugs can be disposed of in this way. Some medicines may require a different approach.4.Never flush your medications down the toilet. IF YOU HAVE BEEN PRESCRIBED AN OPIOIDS FOR PAIN If you have been prescribed an opioid (such as hydrocodone, oxycodone or morphine), it is critical to understand the possible side effects and risks of opioid pain medications. Even when taken as directed, opioids can have several side effects including: Tolerance, meaning you might need to take more of a medication for the same pain relief. Nausea, vomiting and/or constipation. Sleepiness, dizziness, dry mouth, confusion, depression or itching. Physical dependence, meaning you have withdrawal symptoms when a medication is stopped ? this can develop within a few days. KNOW YOUR RESPONSIBILITIES It is important to know exactly how much and how often to take the opioid pain medications you are prescribed. Never take opioids in higher amounts or more often than prescribed. Do not combine opioids with alcohol or other drugs that cause drowsiness, such as benzodiazepines, also known as benzos, including diazepam and alprazolam, muscle relaxants or sleep aids. Never sell or share prescription opioids. This is illegal. Store opioids in a secure place and out of reach of others (including children, family, friends and visitors). The last page(s) of this document has been signed and retained as a CHART COPY Signatures Patient Education Materials Hiccups Medication Leaflets codeine and guaifenesin My discharge plan and instructions have been reviewed and explained to me and IRACHEAL JEREMY M understand my current condition and have read and understand these discharge instructions. I have received a written copy of the plan/instructions. If I have questions, I am aware that I should contact my doctor. 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 HISTORY: ORDERING SYSTEM PROVIDED HISTORY: Reason for Exam: SOB/cough/fever FINDINGS: The cardiac and mediastinal contours are within normal limits. There is no appreciable pneumothorax, pleural effusion, or vascular congestion. No focal consolidations. No acute skeletal abnormality is evident. IMPRESSION: 1. No evidence of acute cardiopulmonary process. Interpreted by: Raleigh Khanna DO Preliminary Report By: Raleigh Khanna DO Electronically signed By Raleigh Khanna DO Dictated Date: 03/07/2022 9:35:28 AM Prelim Date: 03/07/2022 9:36:08 AM Sign Date: 03/07/2022 9:36:08 AM Ordering Provider: [facility] 03-07-2022 Note ORIGINAL EXAMINATION: ONE XRAY VIEW OF THE CHEST 03/07/2022 9:21 am COMPARISON: None. HISTORY: ORDERING SYSTEM PROVIDED HISTORY: Reason for Exam: SOB/cough/fever FINDINGS: The cardiac and mediastinal contours are within normal limits. There is no appreciable pneumothorax, pleural effusion, or vascular congestion. No focal consolidations. No acute skeletal abnormality is evident. IMPRESSION: 1. No evidence of acute cardiopulmonary process. Interpreted by: Raleigh Khanna DO Preliminary Report By: Raleigh Khanna DO Electronically signed By Raleigh Khanna DO Dictated Date: 03/07/2022 9:35:28 AM Prelim Date: 03/07/2022 9:36:08 AM Sign Date: 03/07/2022 9:36:08 AM Ordering Provider: [facility] 03-05-2022 Influenza virus A and B RNA and SARS-CoV-2 (COVID-19) N gene panel MARCK+probe (Resp) COVID 19 RESULT: SARS-CoV-2 (Agent of COVID-19) Not Detected by RT-PCR or equivalent method. mike [id number] [employer] (INNA)_EUA This test was developed and its performance characteristics determined by [facility] [place]. This test has been authorized by FDA under an Emergency Use Authorization (EUA). This test has been validated in accordance with the FDA's Guidance Document Policy for Diagnostics Testing in Laboratories Certified to Perform High Complexity Testing under CLIA prior to Emergency use Authorization for Coronavirus Disease 2019 during the Public Health Emergency issued on August 06, 2019. Test performed by [facility], [facility] [place], [address] [id number]. INFLUENZA A PCR: Negative for Influenza A by RT-PCR INFLUENZA B PCR: Negative for Influenza B by RT-PCR [facility] documented in this encounter [facility] Work Phone: Evaluation note* Diagnosis Sore throat- Primary Acute pharyngitis At increased risk of exposure to COVID-19 virus documented [facility] Diagnosis Sore throat- Primary Acute pharyngitis [facility] No data available for this section [facility] Summary Purpose Family History No Family History Records FoundNo Family History Records FoundNo Family History Records FoundNo Family History Records Found Advance Directives No Advanced Directives Records FoundNo Advanced Directives Records FoundNo Advanced Directives Records FoundNo Advanced Directives Records Found Health Concerns Infection Onset Date Last Indicated Resolved Time COVID-19 Rule-Out 03/05/2022 03/05/2022 Additional Source Comments (unrecognized sect ion and content) No Status Records FoundNo Status Records FoundNo Status Records FoundNo Status Records Found INFORMATION SOURCE (unrecogn ized section and content) DATE CREATED AUTHOR AUTHOR'S ORGANIZ ATION 06/20/2022 [facility] DATE CREATED AUTHOR AUTHOR'S ORGANIZ ATION 08/19/2022 [facility] DATE CREATED AUTHOR AUTHOR'S ORGANIZ ATION 10/[facility]/2022 [facility] Source Comments (unrecognize d section and content) In the event this informatio n is protected by the Federal Confidentiality of Alcohol and Drug Abuse Patient Records regulations: The Federal rules restrict any use of the information to criminally investigate or prosecute any alcohol or drug abuse patient.[facility] the event this information is protected by the Federal Confidentiality of Alcohol and Drug Abuse Patient Records regulations: The Federal rules restrict any use of the information to criminally investigate or prosecute any alcohol or drug abuse patient.[facility] the event this information is protected by the Federal Confidentiality of Alcohol and Drug Abuse Patient Records regulations: The Federal rules restrict any use of the information to criminally investigate or prosecute any alcohol or drug abuse patient.[facility] the event this information is protected by the Federal Confidentiality of Alcohol and Drug Abuse Patient Records regulations: The Federal rules restrict any use of the information to criminally investigate or prosecute any alcohol or drug abuse patient.[facility] Reason for Visit (unrecogniz ed section and content) Reason Comments Results Reason Comments Sore Throat jaw pain x 1 week Reason Comments Verfication Care Team (unrecognized sect ion and content) Care Team Personnel Name: Shanda Connell Clerk Amy PT Position: P3 Scheduling - Economic Consultant Advanced Member Role: Other Name: PHYSICIAN, NONE Position: Physician Member Role: Primary Care Physician Care Team Related Persons Name: NAYELI GAUTHIER Address: [place] [address] Patient Care team informatio n (unrecognized section and content) Care Team Personnel Name: Becki Shipping And Receiving Associate Amy HAIRSTON Position: P3 Scheduling - Economic Consultant Advanced Member Role: Other Name: PHYSICIAN, NONE Position: Physician Member Role: Primary Care Physician Name: BELEM NEVILLE MD Position: ED Physician Member Role: Attending Physician Address: Address: [address] [place] [address] Care Team Related Persons Name: NAYELI GAUTHIER Address: [place] [address] FOR RECORDS PERTAINING TO PATIENTS WHO ARE OR HAVE BEEN ENROLLED IN A CHEMICAL DEPENDENCY/SUBSTANCEABUSE PROGRAM, SOME INFORMATION MAY BE OMITTED. This clinical summary was aggregated from multiple sources. Caution should be exercised in using it in the provision of clinical care. This summary normalizes information from multiple sources, and as a consequence, information in this document may materially change the coding, format and clinical context of patient data. In addition, data may be omitted in some cases. CLINICAL DECISIONS SHOULD BE BASED ON THE PRIMARY CLINICAL RECORDS. [facility] [employer] [facility]. provides no warranty or guarantee of the accuracy or completeness of information in this document.
[2023-06-22] MEDS: Lidocaine 5% Patch 1 PATCH TOPICAL (13:52)
[2023-06-22] MEDS: Orphenadrine 60 MG/2 ML Ampul IM (13:53)
--- NOTE | 2023-06-22 14:10 | ED.RN ---
Pt. given discharge instructions including directions to take tylenol and motrin for pain. Pt. laughed and said not gonna happen, you'll just see me back in here again for something stronger ,.
== END 2023-06-22 14:24 | disposition home or self-care (01) ==
PROVIDERS: Physician Assistant; Emergency Provider Emergency Medicine; Visit Provider Emergency Medicine
DX: B34.9 Viral infection, unspecified (principal); M54.50 Low back pain, unspecified; J45.909 Unspecified asthma, uncomplicated; Z79.899 Other long term (current) drug therapy
CPT/HCPCS: 80053; 85025; 87631; 94640; 96361; 96372; 96374; 96375; 99283; J7030; J2405

== ENCOUNTER 2023-08-04 08:19 | Emergency (ER) | payer OTHER, SELFPAY ==
[2023-08-04 08:19] VITALS: BP 179/97; PULSE 81; RESP 16; TEMP 36.3; O2SAT 97; BMI 37.3
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
--- NOTE | 2023-08-04 09:08 | RAD_ITS ---
STUDY: X-RAY - BILATERAL RIBS WITH CHEST REASON FOR EXAM: Male, 32 years old. Injury TECHNIQUE - RIBS: 8 view(s) of the ribs. TECHNIQUE - CHEST: Single PA view of the chest. COMPARISON: None. FINDINGS - RIBS : Normal visualized ribs without a demonstrated fracture. FINDINGS - CHEST: The lungs are clear and expanded. There is no demonstrated pleural abnormality. Normal size heart. Normal mediastinum and rosa. Normal visualized pulmonary arteries. Normal visualized aortic arch and descending thoracic aorta. Normal visualized thoracic spine. Normal visualized ribs, clavicles, and shoulders. There is no demonstrated abnormality of the visualized soft tissue structures of the upper abdomen. RAD/Ribs Lalito Min 4V w/PA Chest IMPRESSION: RIBS: Normal x-ray examination of the bilateral ribs. CHEST: Normal x-ray examination of the chest. Electronically Signed: Phil Leon MD at 10:27 [facility] ,
--- NOTE | 2023-08-04 09:09 | CT_ITS ---
STUDY: CT ABDOMEN AND PELVIS WITH CONTRAST REASON FOR EXAM: Male, 32 years old. Abdominal pain RADIATION DOSAGE (If Supplied By Facility): CTDIvol = ( 16.94 ) mGy, DLP = ( 1400.27 ) mGycm TECHNIQUE: Transaxial images were obtained from the dome of the diaphragm to the symphysis pubis without oral contrast. IV 100mL Isovue-300 was administered. Sagittal and coronal images were reconstructed. Individualized dose optimization techniques were used for this CT. COMPARISON: None. FINDINGS: The visualized lung bases are unremarkable. The visualized portions of the heart are within normal limits. Normal liver. Normal gallbladder and extrahepatic biliary system. Normal spleen. Normal pancreas. Normal bilateral adrenal glands. Normal right kidney. Normal left kidney. Normal visualized stomach. Normal small intestine. There are scattered colonic diverticula consistent with diverticulosis. The appendix is visualized and appears normal. Small lymph nodes are seen in the mesenteric fat in the right lower quadrant suggestive of mesenteric adenitis. Normal abdominal aorta. Normal inferior vena cava. Normal retroperitoneum. Normal urinary bladder. Normal abdominal wall. Normal osseous structures. CT/Abdomen/Pelvis W IV Cont ONLY IMPRESSION: Scattered sigmoid diverticula. Findings suggestive of a mesenteric adenitis in the right lower quadrant. Electronically Signed: Phil Leon MD at 10:25 [facility] ,
--- NOTE | 2023-08-04 09:09 | RAD_ITS ---
STUDY: X-RAY - RIGHT TIBIA AND FIBULA REASON FOR EXAM: Male, 32 years old. Injury/Pain TECHNIQUE: 4 view(s) of the tibia and fibula were obtained. COMPARISON: None. FINDINGS: Normal visualized tibia. Normal visualized fibula. The soft tissue structures are unremarkable. RAD/Tibia & Fibula 2 Views IMPRESSION: Normal x-ray examination of the tibia and fibula. Electronically Signed: Phil Leon MD at 10:27 [facility] ,
--- NOTE | 2023-08-04 09:09 | RAD_ITS ---
STUDY: X-RAY - LEFT KNEE REASON FOR EXAM: Male, 32 years old. Pain following recent injury. TECHNIQUE: 4 view(s) of the knee. COMPARISON: None. FINDINGS: There is evidence of prior anterior cruciate ligament repair. Normal proximal tibiofibular articulation. Normal medial femorotibial compartment. Normal lateral femorotibial compartment. Normal patellofemoral articulation. Small joint effusion. RAD/Knee 4 or More Views IMPRESSION: Small joint effusion. Evidence of prior anterior cruciate ligament repair. Electronically Signed: Phil Leon MD at 10:26 EST ,
[2023-08-04 09:38] LABS: Absolute Lymphocyte Count 2.95 X10^3/uL (0.83-4.51); Absolute Neutrophil Count 4.5 X10^3/uL (2.0-7.7); Basophil# 0.05 X10^3/uL; Basophil% 0.6 % (0-1); Eosinophil# 0.36 X10^3/uL; Eosinophils% 4.2 % (0-5); Hematocrit 39.7 % (40-54); Hemoglobin 13.3 g/dL (13.0-16.5); Lymphocyte # 2.95 X10^3/ul (0.83-4.51); Lymphocyte % 34.2 % (19-41); Mean Corp Hgb Conc 33.5 g/dL (32-36); Mean Corpuscular Hgb 29.2 pg (27.0-32.0); Mean Corpuscular Volume 87.3 fL (80-94); Mean Platelet Vol. 10.3 fl (6.2-12.0); Monocyte# 0.79 X10^3/uL; Monocyte% 9.2 % (0-10); NRBC Flagged by Analyzer 0 % (0-5); Neutrophil # 4.46 X10^3/uL (2.7-7.7); Neutrophil % 51.6 % (47-70); Platelet Count 252 K/mm3 (150-450); RBC Distribution Width CV 12.6 % (11.6-14.6); RBC Distribution Width SD 39.8 fl (35.1-43.9); Red Blood Count 4.55 M/mm3 (4.6-6.2); White Blood Count 8.6 K/mm3 (4.4-11.0)
[2023-08-04 09:57] LABS: AST(SGOT) 18 U/L (15-37); Alanine Aminotransfer ALT/SGPT 35 U/L (16-61); Albumin, Serum 3.5 g/dL (3.2-5.0); Alkaline Phosphatase 52 U/L (45-117); Anion Gap 1 (5-15); BUN 15 mg/dL (7-18); BUN/Creat Ratio 15.9 RATIO (10-20); Calcium,Total 8.6 mg/dL (8.5-10.1); Chloride 110 mmol/L (98-107); Creatinine, Serum 0.94 mg/dL (0.70-1.30); EST Glomerular Filtration Rate 98 mL/min (>60); Est Glom Filt Rate - Afr Amer 118 mL/min (>60); Estimated Creatinine Clearance 156.94 ml/min; Globulin 3.6 g/dL (2.2-4.2); Glucose 94 mg/dL (74-106); Protein, Total 7.1 g/dL (6.4-8.2); Sodium Level 141 mmol/L (136-145)
[2023-08-04 10:19] VITALS: RESP 18
[2023-08-04 11:40] VITALS: BP 129/86; PULSE 65; RESP 18; TEMP 36.8; O2SAT 99
== END 2023-08-04 11:43 | disposition home or self-care (01) ==
PROVIDERS: Emergency Provider Emergency Medicine; Visit Provider Emergency Medicine
DX: S29.011A Strain of muscle and tendon of front wall of thorax, initial encounter (principal); S80.02XA Contusion of left knee, initial encounter; S80.11XA Contusion of right lower leg, initial encounter; V29.408A Other motorcycle driver injured in collision with unspecified motor vehicles in traffic accident, initial encounter; Y93.55 Activity, bike riding
CPT/HCPCS: 71111; 73564; 73590; 74177; 80053; 85025; 99282; Q9967; A4216

== ENCOUNTER 2024-09-09 08:28 | Emergency (ER) | payer SELFPAY ==
[2024-09-09 08:28] VITALS: BP 136/89; PULSE 55; RESP 14; TEMP 36.6; O2SAT 100; BMI 33.3
--- NOTE | 2024-09-09 08:39 | ED.VIS.GI ---
HPI HPI - GI History of Present Illness Chief Complaint: Abd Pain Informant: patient Narrative Narrative: Worsening epigastric pain over the last 2 days. On and off symptoms for years. He states he went to the ED 4 years ago evaluated with no testing and sent home. He states he is noting lumps under soft tissue abdomen lower chest region. Able to eat yesterday with no issues. No nausea vomiting diarrhea. No black or bloody stools. Denies any abdominal surgeries. Reports symptoms worsen the last 2 days. States only surgical history of left ACL repair. Denies chronic NSAID use. He states has not drank alcohol in over a year. Prior similar symptoms: Yes PFSH PFSH Medical History DDD (degenerative disc disease) Asthma Home Medications ?Medication ?Instructions ?Recorded ?Last Taken ?Type albuterol sulfate 90 mcg/actuation 1 - 2 puff inhalation Q4H PRN PRN 03/29/17 09/17/18 05:45 Rx aerosol inhaler (Ventolin HFA) Wheezing ##1 1 - 2 PUFF tramadol 50 mg tablet 50 mg PO Q4H PRN PRN Pain 3 days 08/04/23 Unknown Rx #18 tabs pantoprazole 40 mg tablet,delayed 40 mg PO DAILY #30 tabs 09/09/24 Unknown Rx release Allergy/AdvReac Type Severity Reaction Status Date / Time No Known Allergies Allergy Verified 08/04/23 08:22 Surgical History S/P ACL repair Social History household members: significant other Smoking Status: Never smoker substance use type: does not use ROS ROS ED Constitutional Constitutional ED: Denies chills, fever(s) or sweats ENT ENT ED: Denies sore throat Cardiovascular Cardiovascular: Denies chest pain, leg edema, palpitations or racing heartbeat Respiratory/Chest Respiratory/Chest: Denies cough, dyspnea or dyspnea on exertion Gastrointestinal Gastrointestinal: Reports abdominal pain; Denies diarrhea, nausea or vomiting Genitourinary Genitourinary ED: Denies dysuria, hematuria or urinary frequency Musculoskeletal Musculoskeletal: Denies back pain, extremity pain or neck pain Integumentary Denies rash or wounds Neurologic Neurologic: Denies headache(s), paresthesias or weakness EXAM Physical Exam Const Vital Signs: 09/09/24 08:28 09/09/24 10:28 09/09/24 11:15 Temperature 98 F 98.3 F 98.7 F Temperature Source Temporal Oral Pulse Rate 55 L 89 78 Respiratory Rate 14 18 16 Blood Pressure 136/89 H 136/64 H 139/64 H Blood Pressure Mean 104 88 89 Pulse Ox 100 98 99 Oxygen Delivery Method Room Air Room Air Positive well nourished and well developed General Appearance ED: well developed and NAD HEENT Reports moist mucous membranes normocephalic and atraumatic Eyes General Eye ED: Yes normal appearance of both eyes Neck full ROM Chest Wall Chest: Negative for tenderness Resp normal respiratory effort and normal air movement Effort and Inspection: symmetric chest movement; Negative for respiratory distress Cardio regular rate, regular rhythm and no murmurs Peripheral Pulses: pulses 2+ throughout GI normal to inspection, nondistended, normoactive bowel sounds GI Narrative: Epigastric tenderness mild right upper quadrant tenderness. Negative McBurney's. Soft tissue evaluation nickel sized lipomas under the skin right side. Palpation: Negative for guarding or rebound tenderness present Extremity normal to inspection General Extremety ED: Negative for edema or tenderness General Extremity: Negative for edema Neuro oriented x3 and no sensory deficits noted Sensorium / Orientation: awake and alert Skin no rashes or lesions noted and no wounds MDM MDM MDM Narrative Medical decision making narrative: Interventions / MDM: Differential diagnosis: Gastritis, fatty liver Diagnosis considered but do not suspect: Cholelithiasis however negative ultrasound. Choledocholithiasis however negative ultrasound and normal labs. No clinical cholecystitis. Pancreatitis however lipase normal. My EKG interpretation: N/A Imaging independently reviewed and interpreted by myself: Right upper quadrant ultrasound: Fatty liver, normal gallbladder structures. External documents reviewed: CT scan abdomen pelvis from blunt abdominal injury July 2023: Only noted scattered diverticuli. Normal gallbladder structures at that time. Test considered but not ordered:N/A ED course: Patient pain epigastric mild right upper quadrant. Clinical palpation soft tissue lesions concerning more for lipomas. On and off symptoms for years with with no testing per patient. Will check abdominal labs, right upper quadrant ultrasound ordered. GI cocktail ordered. 0938: Abdominal labs normal. Patient reports not much improvement GI cocktail. Ultrasound pending. 1100: Ultrasound results notes fatty liver. Normal gallbladder structures. Discussed findings with the patient. Will place on a PPI. He will follow-up with GI. He is also given surgery follow-up for discussion for treatment options with his lipoma palpated on exam. All his questions were answered. Re-evaluation: stable Disposition discussed with patient/family/significant other: Patient Case discussed with consulting clinician: N/A This note was generated with [employer] dictation software. It may contain incorrect words, spelling, and punctuation that were not noted in checking the note before signing. Lab Data Attestation: I reviewed the patient's lab results. Labs: Laboratory Results - last 24 hr 09/09/24 08:40 WBC 7.8 RBC 4.85 Hgb 13.8 Hct 42.4 MCV 87.4 MCH 28.5 MCHC 32.5 RDW Std Deviation 39.9 RDW Coeff of Noah 12.6 Plt Count 218 MPV 10.5 Immature Gran % (Auto) 0.300 Neut % (Auto) 40.6 L Lymph % (Auto) 44.4 H [place] % (Auto) 9.2 Eos % (Auto) 5.0 Baso % (Auto) 0.5 Absolute Neuts (auto) 3.2 Absolute Lymphs (auto) 3.44 Nucleated RBC % 0 Sodium 140 Potassium 3.9 Chloride 108 Carbon Dioxide 24.5 Anion Gap 8 BUN 12 Creatinine 0.91 Estim Creat Clear Calc 151.78 Est GFR (MDRD) Non-Af 113 BUN/Creatinine Ratio 13.5 Glucose 91 Calcium 9.0 Total Bilirubin 0.72 Direct Bilirubin 0.28 AST 19 ALT 24 Alkaline Phosphatase 54 Total Protein 7.0 Albumin 4.0 Globulin 3.0 Lipase 22 Radiography Diagnostic Testing: Clinical Impression(s) from Imaging Studies Abdomen Ultrasound 09/09/24 08:43 IMPRESSION: Fatty infiltration of the liver. Borderline hepatomegaly. Reading Location: [place] [address] Discharge Plan Triage Chief Complaint: Abd Pain ED Provider: Cleveland Baxter Dx/Rx/DC Orders Clinical Impression: Lipoma of abdominal wall, Abdominal pain, Gastritis, Fatty liver Instructions: Abdominal Pain, ED Gastritis (Adult), ED Lipoma Prescriptions: New pantoprazole 40 mg tablet,delayed release (DR/EC) 40 mg PO DAILY Qty: 30 0RF No Action albuterol sulfate [Ventolin HFA] 1 INHALER inhaler 1 - 2 puff inhalation Q4H PRN PRN (Reason: Wheezing) Qty: 1 0RF tramadol 50 mg tablet 50 mg PO Q4H PRN PRN (Reason: Pain) 3 Days Qty: 18 0RF Primary Care Provider: Care Physician,No Primary Referrals: Ameya Ritter DO [Med Staff - Active Staff] - 1-2 Weeks Bartolo Butler MD [Med Staff - Active Staff] - 1-2 Weeks Care Physician,No Primary [Primary Care Provider] - Activity Restrictions/Additional Instructions: Abdominal labs all normal. Ultrasound fatty liver with normal gallbladder structures. Take medication as prescribed follow-up with Dr. Ritter for outpatient evaluation. Lipoma palpated on exam of your abdomen. You may follow-up with surgery for discussion of treatment options. Print Language: Welsh Disposition Disposition: Home, Self Care Discharge Date/Time: 09/09/24 11:16
--- NOTE | 2024-09-09 08:43 | US_ITS ---
PROCEDURE: ABDOMEN LIMITED 09/09/2024 REASON FOR EXAM: EPIGASTRIC PAIN COMPARISON: None FINDINGS: Liver: Diffusely echogenic suggesting fatty infiltration. Liver measures 17.3 cm. Gallbladder: No stones, sludge, wall thickening or tenderness. Gallbladder wall measures 2.7 mm. Common bile duct: Normal measuring 5 mm.. Pancreas: Visualized portions are unremarkable. The distal body and tail are obscured by bowel gas. Other: Visualized portions of the right kidney are unremarkable. No right upper quadrant ascites. US/Abdomen Limited IMPRESSION: Fatty infiltration of the liver. Borderline hepatomegaly. Reading Location: [facility]
[2024-09-09 08:54] LABS: Absolute Lymphocyte Count 3.44 X10^3/uL (0.83-4.51); Absolute Neutrophil Count 3.2 X10^3/uL (2.0-7.7); Basophil# 0.04 X10^3/uL; Basophil% 0.5 % (0-1); Eosinophil# 0.39 X10^3/uL; Hematocrit 42.4 % (40-54); Hemoglobin 13.8 g/dL (13.0-16.5); Lymphocyte # 3.44 X10^3/ul (0.83-4.51); Lymphocyte % 44.4 % (19-41); Mean Corp Hgb Conc 32.5 g/dL (32-36); Mean Corpuscular Hgb 28.5 pg (27.0-32.0); Mean Corpuscular Volume 87.4 fL (80-94); Mean Platelet Vol. 10.5 fl (6.2-12.0); Monocyte# 0.71 X10^3/uL; Monocyte% 9.2 % (0-10); NRBC Flagged by Analyzer 0 % (0-5); Neutrophil # 3.15 X10^3/uL (2.7-7.7); Neutrophil % 40.6 % (47-70); Platelet Count 218 K/mm3 (150-450); RBC Distribution Width CV 12.6 % (11.6-14.6); RBC Distribution Width SD 39.9 fl (35.1-43.9); Red Blood Count 4.85 M/mm3 (4.6-6.2); White Blood Count 7.8 K/mm3 (4.4-11.0)
[2024-09-09] MEDS: Mag Hydrox/Al Hydrox/Simeth 30 ML UDC PO (09:01)
[2024-09-09] MEDS: Lidocaine 2% Viscous15 ML UDC 15 ML PO (09:01)
[2024-09-09 09:36] LABS: AST(SGOT) 19 U/L (<=37); Alanine Aminotransfer ALT/SGPT 24 U/L (<=46); Alkaline Phosphatase 54 U/L (40-129); Anion Gap 8 (5-15); BUN 12 mg/dL (4-19); BUN/Creat Ratio 13.5 RATIO (10-20); Bilirubin, Direct 0.28 mg/dL (0.00-0.30); Carbon Dioxide 24.5 mmol/L (21.0-32.0); Chloride 108 mmol/L (98-108); Creatinine, Serum 0.91 mg/dL (0.70-1.20); EST Glomerular Filtration Rate 113 (>60); Estimated Creatinine Clearance 151.78 ml/min (50-250); Glucose 91 mg/dL (70-99); Lipase 22 U/L (13-75); Potassium 3.9 mmol/L (3.3-5.1); Sodium Level 140 mmol/L (133-145); Total Bilirubin 0.72 mg/dL (0.00-1.30)
[2024-09-09 10:28] VITALS: BP 136/64; PULSE 89; RESP 18; TEMP 36.8; O2SAT 98
[2024-09-09 11:15] VITALS: BP 139/64; PULSE 78; RESP 16; TEMP 37.1; O2SAT 99
--- NOTE | 2024-09-09 11:41 | CM.ED ---
Social Work SW introduced self to patient and explained role in hospital. Patient confirmed that he does not currently have a PCP due to not having insurance and being concerned about the cost. Information for Yumiko Chen given. Patient accepting of same. Jo Amezcua, AGED OR DISABLED CARE WORKER, [employer]BI[employer]ODUCT MANAGER
== END 2024-09-09 11:16 | disposition home or self-care (01) ==
PROVIDERS: Emergency Provider Emergency Medicine; Visit Provider Emergency Medicine
DX: D17.5 Benign lipomatous neoplasm of intra-abdominal organs (principal); K29.70 Gastritis, unspecified, without bleeding; K76.0 Fatty (change of) liver, not elsewhere classified
CPT/HCPCS: 76705; 80048; 80076; 83690; 85025; 99283; A4216